=== PATIENT | female | born 1940 | race Caucasian/White ===

== ENCOUNTER 2016-12-09 14:58 | Inpatient (IN) | payer MEDICARE, OTHER, SELFPAY ==
[2016-12-09] VITALS (9 sets, daily range): BP systolic 93–128; BP diastolic 61–79; PULSE 82–118; RESP 16–23; TEMP 36.9–37.1; O2SAT 95–100; BMI 21.8; BMI 22.2
--- NOTE | 2016-12-09 15:18 | EKG12_ITS ---
Test Reason : NEAR SYNCOPE Blood Pressure : / mmHG Vent. Rate : 095 BPM Atrial Rate : 095 BPM P-R Int : 220 ms QRS Dur : 078 ms QT Int : 362 ms P-R-T Axes : 050 -41 051 degrees QTc Int : 454 ms Sinus rhythm with 1st degree A-V block with Premature atrial complexes Left axis deviation / LAHB Anterolateral infarct , age undetermined Abnormal ECG Confirmed by TACO ANTOINE ([id number]), assignment editor REY GOFF ([id number]) on 12/11/2016 3:18:05 PM Referred By: JULIANA/CARMEN Confirmed By:TACO ANTOINE
[2016-12-09 16:21] LABS: Anion Gap 11 (5-15); BUN 31 mg/dL (7-18); BUN/Creat Ratio 17.5 RATIO (10-20); Calcium,Total 8.2 mg/dL (8.5-10.1); Chloride 110 mmol/L (98-107); Creatinine, Serum 1.77 mg/dL (0.55-1.02); EST Glomerular Filtration Rate 30 mL/min (>60); Est Glom Filt Rate - Afr Amer 36 mL/min (>60); Estimated Creatinine Clearance 22.72 ml/min; Glucose 96 mg/dL (70-110); Potassium 4.1 mmol/L (3.5-5.1); Sodium Level 140 mmol/L (136-145)
[2016-12-09 16:54] LABS: Absolute Lymphocyte Count 1.64 X10^3/ul (0.83-4.51); Absolute Neutrophil Count 8.4 X10^3/uL (2.0-7.7); Basophil# 0.02 X10^3/uL; Basophil% 0.2 % (0-1); Eosinophil# 0.01 X10^3/uL; Eosinophils% 0.1 % (0-5); Hemoglobin 9.1 g/dl (12.0-15.0); Lymphocyte # 1.64 X10^3/ul (4.0); Lymphocyte % 15.6 % (19-41); Mean Corp Hgb Conc 31.4 g/gl (32-36); Mean Corpuscular Hgb 31.8 pg (27.0-32.0); Mean Corpuscular Volume 101.4 fL (81-99); Mean Platelet Vol. 11.8 fl (6.2-12.0); Monocyte# 0.43 X10^3/uL; Monocyte% 4.1 % (0-10); Neutrophil # 8.38 X10^3/uL (2.7-7.7); Neutrophil % 79.8 % (47-70); Platelet Count 261 K/mm3 (150-450); RBC Distribution Width CV 13.2 % (11.6-14.6); RBC Distribution Width SD 47.7 fl (35.1-43.9); Red Blood Count 2.86 M/mm3 (4.2-5.4); White Blood Count 10.5 K/mm3 (4.4-11.0)
[2016-12-09 17:03] LABS: POSITIVE COUNT NO; POSITIVE DIFFERENTIAL NO; POSITIVE MORPHOLOGY NO
--- NOTE | 2016-12-09 18:13 | CT_ITS ---
CT Abdomen And Pelvis W/O Contrast INDICATION: ABD PAIN, HX OF ULCER AND CKD. HX OF GASTRIC BYPASS, GB, JUSTINA/BSO COMPARISON: None TECHNIQUE: Noncontrast axial CT examination of the abdomen and pelvis with coronal and sagittal reformatted images. Radiation dose optimization technique applied. FINDINGS: Visualized lung bases demonstrate subsegmental atelectasis at the left lung base and some air trapping, otherwise clear. The heart size is normal. Trace pericardial fluid is present. Liver and spleen are normal in size. Gallbladder is surgically absent. Surgical sutures are seen at the stomach and there is significant wall thickening and fat stranding at the distal stomach adjacent to the sutures, and extending along the proximal duodenum. Few adjacent lymph nodes are seen. Pancreas is small in size. The kidneys are without evidence of nephrolithiasis or hydronephrosis. A 2 cm right renal mass or complex cyst is present . The bowel loops are nondistended. The appendix is not visualized. There is no evidence of free air or free fluid. Osseous structures demonstrate multilevel degenerative changes. CT/Abdomen/Pelvis without Cont IMPRESSION: Wall thickening and significant fat stranding at the level of the distal stomach, and proximal duodenum, level of the sutures, suggestive of inflammation or infection. Neoplasm appears less likely. Further evaluation with EGD is recommended. Status post cholecystectomy. 2 cm complex cyst about circumscribed mass at the right kidney, recommend further evaluation/confirmation with ultrasound. at 1902 Reported and signed by: Yoli Prasad MD Electronically Signed: Yoli Prasad MD at 18:00 EDT Tel , Service support ,
[2016-12-09 18:50] LABS: Red Blood Cells-Urine 0 SEEN /hpf (0-5)
[2016-12-09 19:05] LABS: Color, Urine Yellow (Yellow); Glucose, Dipstick Normal (Normal); Ketone-Dipstick 50 mg/dl (Negative); Leukocyte Esterase-Dipstick 100 /ul (Negative); Nitrite-Dipstick Negative (Negative); Occult Blood-Urine Negative /ul (Negative); Protein-Dipstick 30 mg/dl (Negative); Specific Gravity, Urine 1.015 (1.002-1.030); Urine Bilirubin Dipstick Negative (Negative); Urine Clarity Sl. Cloudy (Clear); Urine Urobilinogen Normal (Normal)
--- NOTE | 2016-12-09 19:24 | ED.RN ---
Updated Dr. Jasmine of patient's complaints of nausea.
[2016-12-09 19:36] LABS: AST(SGOT) 19 U/L (15-37); Alanine Aminotransfer ALT/SGPT 18 U/L (12-78); Albumin, Serum 2.9 g/dL (3.4-5.0); Alkaline Phosphatase 141 U/L (45-117); Bilirubin, Direct 0.11 mg/dL (0.00-0.30); Globulin 3.4 g/dL (2.3-3.5); Protein, Total 6.3 g/dL (6.4-8.2)
[2016-12-09 19:52] LABS: Lipase 175 U/L (73-393)
[2016-12-09] MEDS: Ondansetron 4 MG/2 ML Vial IV (19:58)
[2016-12-09 20:02] LABS: White Blood Cells 5-10 SEEN /hpf (0-5)
[2016-12-09 20:03] LABS: Bacteria 1+ /hpf (None Seen); Mucous, Urine 1+ /hpf (<or=2+); Squamous Epithelial Cells - UA 0-5 SEEN /hpf (5-10)
--- NOTE | 2016-12-09 20:05 | CT_ITS ---
CT Abdomen And Pelvis W/O Contrast INDICATION: F/U WITH ORAL CONTRAST FOR WALL THICKENING AND FAT STRANDING AT LEVEL OF DISTAL STOMACH AND PROXIMAL DUODENUMHX:CKD,HYPOTHYROIDSURGERY:GASTRIC BYPASS,APPENDECTOMY,CHOLECYSTECTOMY,COLECTOMY,HYSTERECTOMY COMPARISON: Earlier the same day TECHNIQUE: Axial CT imaging of the abdomen and pelvis with oral contrast. Coronal and sagittal reformatted images. Radiation dose optimization technique applied. FINDINGS: A calcific density is partially included in the scan at the left lung base along the major fissure. This finding was appreciated on prior chest x-ray from November 21, 2016. Visualized lung bases otherwise clear. Oral contrast material is seen in the stomach. , And extends into the proximal small bowel. There is diffuse bowel wall thickening at the distal stomach and at the connection to the small bowel at the level of surgery. Adjacent fat stranding is noted and small mesenteric lymph nodes. There is no evidence of free air or contrast extravasation. Liver and spleen are normal in size. Kidneys are without evidence of hydronephrosis. 2 cm complex cyst or a solid lesion again noted associated with the right kidney. CT/Abdomen/Pel W ORAL Cont Only IMPRESSION: Redemonstration of diffuse wall thickening at the distal stomach and proximal small bowel, compatible with inflammation or infection. No evidence off perforation/free air or drainable abscess at this time. Further evaluation with EGD is recommended. 2 cm complex cyst or solid mass associated with the right kidney, as described. at 2906 Reported and signed by: Yoli Prasad MD Electronically Signed: Yoli Prasad MD at 20:54 EDT Tel , Service support ,
--- NOTE | 2016-12-09 22:26 | ED.RN ---
Updated Dr. Jasmine of patient's complaints of GI cramping and low bp. New orders received.
--- NOTE | 2016-12-09 22:40 | HP.PCM_ITS ---
Problem List (1) Abdominal pain Status: Acute Qualifiers: Abdominal location: left upper quadrant Qualified Code(s): R10.12 - Left upper quadrant pain (2) Nausea and vomiting Status: Acute Qualifiers: Vomiting type: unspecified (3) CKD (chronic kidney disease) Status: Chronic (4) Hypothyroid Status: Chronic Qualifiers: Hypothyroidism type: unspecified Qualified Code(s): E03.9 - Hypothyroidism , unspecified (5) Vitamin D deficiency Status: Chronic History of Present Illness Date of Admission: 12/09/16 Chief Complaint: abdominal pain with nausea and vomiting The patient is a 76 year old female patient with a significant past medical history of hypothyroidism, and previous abdominal pain status post surgical repair of what she says was perforation that occurred during and endoscopy in 2002. She presents to the ER just over a week from discharge for similar complaint. She has abdominal pain with nausea and vomiting beginning this past Friday. She has not been tolerating PO since that time. Today in the office of her PCP she became lightheaded and asked for help, she was then transferred to the ER for further evaluation. She denies chest pain or shortness of breath. Her history reveals hypothyroidism which she states she has been making an effort to take her medication up until Friday when she was no longer able to tolerate PO. She will be admitted made NPO and plan for EGD on Friday by Dr. aMys. Past Medical History Past Medical History (Chronic Problems): Chronic Problems CKD (chronic kidney disease) (Chronic) Hypothyroid (Chronic) Vitamin D deficiency (Chronic) Allergies Penicillins [PCN] Allergy (Verified 11/21/16 15:09) Angioedema PENTANYLBUPIVACAINE Allergy (Uncoded 11/21/16 15:09) Other Home Medications: Ambulatory Orders Medication Instructions Recorded Omeprazole 20 mg PO BID 11/21/16 Sucralfate [Carafate] 1 gm PO TID 11/21/16 Ferrous Sulfate [Iron] 325 mg PO BID #60 tablet 11/25/16 Levothyroxine [Synthroid] 50 mcg PO DAILY@0600 #30 tablet 11/25/16 Sodium Bicarbonate 650 mg PO BID #60 tablet 11/25/16 Surgical History: appendectomy, cholecystectomy, hysterectomy, - - gastric bypass, colectemy, vocal cord polyp, egd Smoking Status: Never smoker - *Family History Maternal History Items: - - pneumonia Paternal History Items: - - in a boating accident Sibling History Items: Heart Disease, Renal Disease - On dialysis following open heart surgery Review of Systems Constitutional: Reports: Weakness. Denies: Chills, Fever, Weight Change HEENT: Denies: Head Aches, Sinus Congestion, Sinus Drainage Cardiovascular: Denies: Chest Pain, Palpitations Respiratory: Denies: Cough, Shortness of breath at rest, Sputum production Gastrointestinal: Reports: Abdominal Pain, Nausea, Vomiting Genitourinary: Denies: Dysuria Musculoskeletal: Denies: Joint Pain, Joint Tenderness Skin: Denies: Rash, Wounds Neurological: Denies: Numbness, Tingling, Focal weakness Psychiatric: Denies: Anxiety, Depression, Homicidal Ideations, Suicidal Ideations Hematologic/ Lymphatic: Denies: Easy Bruising, Easy Bleeding VTE Information - Inpt Only VTE Present on Admission: No VTE Mechan Device Prophylaxis: SCD's VTE Pharm Prophylaxis ordered?: No Reason prophylaxis not ordered:: Medical Contraindication Patient Problems: Active and Suspected Problems Abdominal pain (Acute) Nausea and vomiting (Acute) - Physical Exam General: Alert, Oriented x3, Cooperative HEENT: Atraumatic, Normocephalic Neck: Supple Lungs: Clear to auscultation, Normal air movement, No rhonchi, No wheeze, No rales Cardiovascular: Regular rate, Regular Rhythm, Normal S1, Normal S2, No murmurs Abdomen: Bowel Sounds Present, Soft, Tender - LUQ Extremities: No edema, Capillary Refill Less than 3 Seconds Skin: No rashes Musculoskeletal: No Tenderness to Palpation of Joints or Extremities Neurological: Neuro grossly intact Psych/Mental Status: Normal Affect, Appropriate Vital Signs Temp Pulse Resp BP Pulse Ox 98.5 F 90 23 108/79 100 12/09/16 15:15 12/09/16 20:05 12/09/16 20:05 12/09/16 20:05 12/09/16 20:05 Oxygen Delivery Method Room Air Weight: 125 lb Body Mass Index (BMI) 21.8 Laboratory Tests Past 24 Hrs 12/09/16 12/09/16 12/09/16 15:39 15:39 15:39 WBC 10.5 RBC 2.86 L Hgb 9.1 L Hct 29.0 L MCV 101.4 H MCH 31.8 MCHC 31.4 L RDW 13.2 RDW Differential 47.7 H Plt Count 261 MPV 11.8 Immature Gran % (Auto) 0.200 Neut % (Auto) 79.8 H Lymph % (Auto) 15.6 L [place] % (Auto) 4.1 Eos % (Auto) 0.1 Baso % (Auto) 0.2 Absolute Neuts (auto) 8.4 H Absolute Lymphs (auto) 1.64 Total Counted Not Reportable Sodium 140 Potassium 4.1 Chloride 110 H Carbon Dioxide 19.0 L Anion Gap 11 BUN 31 H Creatinine 1.77 H Estim Creat Clear Calc 22.72 Est GFR (MDRD) Af Amer 36 L Est GFR (MDRD) Non-Af 30 L BUN/Creatinine Ratio 17.5 Glucose 96 Calcium 8.2 L Total Bilirubin 0.40 Direct Bilirubin 0.11 AST 19 ALT 18 Alkaline Phosphatase 141 H Troponin I Total Protein 6.3 L Albumin 2.9 L Globulin 3.4 Lipase TSH Urine Color Urine Clarity Urine pH Ur Specific [place] Urine Protein Urine Glucose (UA) Urine Ketones Urine Occult Blood Urine Nitrite Urine Bilirubin Urine Urobilinogen Ur Leukocyte Esterase Urine RBC Urine WBC Ur Squamous Epith Cells Urine Bacteria Urine Mucus 12/09/16 12/09/16 15:39 18:35 WBC RBC Hgb Hct MCV MCH MCHC RDW RDW Differential Plt Count MPV Immature Gran % (Auto) Neut % (Auto) Lymph % (Auto) [place] % (Auto) Eos % (Auto) Baso % (Auto) Absolute Neuts (auto) Absolute Lymphs (auto) Total Counted Sodium Potassium Chloride Carbon Dioxide Anion Gap BUN Creatinine Estim Creat Clear Calc Est GFR (MDRD) Af Amer Est GFR (MDRD) Non-Af BUN/Creatinine Ratio Glucose Calcium Total Bilirubin Direct Bilirubin AST ALT Alkaline Phosphatase Troponin I < 0.02 Total Protein Albumin Globulin Lipase 175 TSH 55.80 H Urine Color Yellow Urine Clarity Sl. Cloudy Urine pH 6.0 Ur Specific [place] 1.015 Urine Protein 30 H Urine Glucose (UA) Normal Urine Ketones 50 H Urine Occult Blood Negative Urine Nitrite Negative Urine Bilirubin Negative Urine Urobilinogen Normal Ur Leukocyte Esterase 100 H Urine RBC 0 SEEN Urine WBC 5-10 SEEN Ur Squamous Epith Cells 0-5 SEEN Urine Bacteria 1+ Urine Mucus 1+ Assessment/Plan Active and Suspected Problems Abdominal pain (Acute) Nausea and vomiting (Acute) Chronic conditions - hypothyroidism - vit D deficiency Plan - admit to medical surgical floor - Make patient NPO - maintain on d51/2 NS with 20meq Kcl at 75 cc /hr - cbc, cmp in am - morphine 2-4 mg iv q 2 hrs prn - zofran 8mg q 8hrs prn nausea - scds for DVT prophylaxis - consult Dr Jaskaran Mays for surgical management - may have thyroid medication with small sip of h20
--- NOTE | 2016-12-09 22:45 | ED.VISSUMM ---
- ER Visit Summary Date of Service: 12/09/16 Chief Complaint: [Nausea and vomiting, near syncope] History of Present Illness: The patient is a 76 F [who presents the emergency department with nausea and vomiting. She has not been able to eat anything for the last 3 days. Everything she eats she vomits up. She says she has some mild pain in her left upper quadrant she feels like is her stomach. She has a history of ulcer disease. She also states she has a history of gastric bypass. She said last time that was performed was in [address] Johnson. She denies any fevers or chills but has felt weak and today she had a near syncopal episode in her doctor's office. She states her bowel movements have been decreased but she is passing gas. Urination she says is normal. She does have a history of hypothyroidism. She has had some swelling of lower extremities.] Physical Examination: [] Vitals reviewed WN WD NAD PERRL EOMI MMM NECK supple and nontender, no masses RRR no murmur rub or gallop, 3+ lower extremity edema, symmetric radial pulses CTAB no respiratory distress ABDOMEN is soft she has mild left upper quadrant tenderness to palpation, normal bowel sounds, no distension, no rebound or guarding SKIN is warm and dry no rashes Alert and Oriented x3, CN II-XII in tact, no motor or sensory deficits, gait normal No lymphadenopathy Test Results: [] Emergency Department Course and Treatment: [Orthostatics were obtained and were positive. Patient was given 500 cc bolus. TSH was sent and was 55 however previous TSH was in the 200s. Patient has chronic anemia and her hemoglobin is actually improved at 9.1. She has chronic kidney disease and creatinine is actually improved at 1.77 bicarb is 19 which is better than previous for her. Other blood work does not show significant abnormality. CT scan was ordered because of the patient's history of gastric bypass in report. It showed inflammation and scarring of the stomach and proximal duodenum along the suture line. I spoke with surgery who recommended p.o. contrasted CAT scan this was performed. There is again stranding but no evidence of obstruction or other abnormality. She then told hospitalist that she had a perforation of her stomach during endoscopy. She was placed on a Protonix drip she was given morphine and Zofran she was given additional bolus of fluid and will be admitted to the hospital] Treatment Plan: [] Disposition: [] Admit Impression: [Dehydration, gastritis duodenitis, hypothyroid] ED Disposition - Plan for ED Patient: Chief Complaint: Dizziness Referrals: Tu Pearce MD [Primary Care Provider] -
--- NOTE | 2016-12-09 23:25 | ED.RN ---
RN spoke with JOCE Chaparro and informed him that when patient arrives to the floor, please send urine culture sticker to the lab. Specimen was collected earlier in the ED.
[2016-12-10] VITALS (29 sets, daily range): BP systolic 84–117; BP diastolic 52–92; PULSE 15–132; RESP 13–23; TEMP 36.4–39.2; O2SAT 93–100
[2016-12-10] MEDS: Levothyroxine 50 MCG Tablet PO (05:39)
[2016-12-10 08:32] LABS: Absolute Lymphocyte Count 1.98 X10^3/ul (0.83-4.51); Basophil# 0.02 X10^3/uL; Basophil% 0.4 % (0-1); Eosinophil# 0.07 X10^3/uL; Eosinophils% 1.2 % (0-5); Hematocrit 17.1 % (37-47); Lymphocyte # 1.98 X10^3/ul (4.0); Lymphocyte % 35.1 % (19-41); Mean Corp Hgb Conc 31.6 g/gl (32-36); Mean Corpuscular Hgb 31.8 pg (27.0-32.0); Mean Corpuscular Volume 100.6 fL (81-99); Mean Platelet Vol. 10.7 fl (6.2-12.0); Monocyte# 0.55 X10^3/uL; Monocyte% 9.8 % (0-10); Neutrophil % 53.1 % (47-70); Platelet Count 167 K/mm3 (150-450); RBC Distribution Width SD 45.4 fl (35.1-43.9); White Blood Count 5.6 K/mm3 (4.4-11.0)
[2016-12-10 08:35] LABS: Differential Indicated SCAN CRITERIA MET; POSITIVE COUNT YES; POSITIVE DIFFERENTIAL NO; POSITIVE MORPHOLOGY NO
[2016-12-10 08:36] LABS: Hemoglobin 5.4 g/dl (12.0-15.0)
[2016-12-10 08:48] LABS: ALB/GLOB Ratio 0.9 RATIO (0.9-2.4); AST(SGOT) 10 U/L (15-37); Alanine Aminotransfer ALT/SGPT 12 U/L (12-78); Alkaline Phosphatase 87 U/L (45-117); Anion Gap 11 (5-15); BUN 37 mg/dL (7-18); BUN/Creat Ratio 22.7 RATIO (10-20); Calcium,Total 7.2 mg/dL (8.5-10.1); Chloride 115 mmol/L (98-107); Creatinine, Serum 1.63 mg/dL (0.55-1.02); EST Glomerular Filtration Rate 33 mL/min (>60); Est Glom Filt Rate - Afr Amer 40 mL/min (>60); Estimated Creatinine Clearance 24.67 ml/min; Globulin 2.3 g/dL (2.3-3.5); Glucose 90 mg/dL (70-110); Potassium 4.5 mmol/L (3.5-5.1); Protein, Total 4.3 g/dL (6.4-8.2); Sodium Level 143 mmol/L (136-145)
[2016-12-10] MEDS: 0.9% Normal Saline 1,000 ML 999 ML IV (08:58)
--- NOTE | 2016-12-10 08:59 | PN_ITS ---
Patient Problems: Active and Suspected Problems Abdominal pain (Acute) Anemia associated with acute blood loss (Acute) Nausea and vomiting (Acute) Subjective: CC: Abdominal pain This is a 76 year old female patient with history of surgical repair of abdominal perforation that occurred during and endoscopy in 2002. She presents to the ED just over a week from discharge for similar complaint. She reports abdominal pain with nausea, vomiting. CT scan of the abdomen and pelvis done in the emergency room yesterday was treated for condition of the junction between the distal stomach and small bowel which may represent an infectious or an inflammatory process. With this morning reported hypotension with systolic blood pressure in the 80s , call from lab with hemoglobin of 5.6. For this patient immediately, she is alert and oriented to time place and person, has any abdominal pain, hematemesis , hematochezia or melena stools. Vitals/I&O's: Vital Signs Temp Pulse Resp BP Pulse Ox 98.0 F 80 18 84/52 98 12/10/16 07:59 12/10/16 07:59 12/10/16 07:59 12/10/16 07:59 12/10/16 07:59 Oxygen Delivery Method Room Air Weight: 56.9 kg Body Mass Index (BMI) 22.2 Intake and Output for Last 24 Hours 12/08/16 12/09/16 12/10/16 23:59 23:59 23:59 Intake Total 432 Output Total 500 Balance -68 General: Alert, Oriented x3, Cooperative Neck: Supple, Negative Carotid Bruits Lungs: Clear to auscultation Cardiovascular: Regular rate, Normal S1, Normal S2 Abdomen: Soft, - - Mild left upper quadrant tenderness Neurological: Cranial nerves II-XII grossly intact, Motor Exam 5/5 strength throughout Psych/Mental Status: Normal Affect Laboratory Results 12/10/16 06:30: WBC Cancelled, Corrected WBC Cancelled, RBC Cancelled, Hgb Cancelled, Hct Cancelled, MCV Cancelled, MCH Cancelled, MCHC Cancelled, RDW Cancelled, RDW Differential Cancelled, Plt Count Cancelled, MPV Cancelled, Immature Gran % (Auto) Cancelled, Neut % (Auto) Cancelled, Lymph % (Auto) Cancelled, [place] % (Auto) Cancelled, Eos % (Auto) Cancelled, Baso % (Auto) Cancelled, Immature Gran # (Auto) Cancelled, Absolute Neuts (auto) Cancelled, Absolute Lymphs (auto) Cancelled, Absolute Monos (auto) Cancelled, Total Counted Cancelled, Neutrophils % (Manual) Cancelled, Band Neutrophils % Cancelled, Lymphocytes % (Manual) Cancelled, Monocytes % (Manual) Cancelled, Eosinophils % (Manual) Cancelled, Basophils % (Manual) Cancelled, Metamyelocytes % Cancelled, Myelocytes % Cancelled, Promyelocytes % Cancelled, Blast Cells % Cancelled, Plasma Cell % (Manual) Cancelled, Other Cells % Cancelled, Lymphocytes # Cancelled, Nucleated RBCs/100 WBC Cancelled, Differential Comment Cancelled, Diff Path Review Cancelled, Hypersegmented Neuts Cancelled, Atypical Lymphocytes Cancelled, Reactive Lymphocytes Cancelled , Smudge Cells Cancelled, Eosinophilia # Cancelled, Basophilia # Cancelled, Toxic Granulation Cancelled, Dohle Bodies Cancelled, [place] Rods Cancelled, Platelet Estimate Cancelled, Plt Morphology Comment Cancelled, RBC Morphology Cancelled, Polychromasia Cancelled, Hypochromasia Cancelled, Poikilocytosis Cancelled, Basophilic Stippling Cancelled, Anisocytosis Cancelled, Microcytosis Cancelled, Macrocytosis Cancelled, Spherocytes Cancelled, Sickle Cells Cancelled , Target Cells Cancelled, Tear Drop Cells Cancelled, Ovalocytes Cancelled, Stomatocytes Cancelled, [place] Bodies Cancelled, [place] Cells Cancelled, Bite Cells Cancelled, Acanthocytes (Spur) Cancelled, Rouleaux Cancelled, Schistocytes Cancelled 12/10/16 06:30: Sodium Cancelled, Potassium Cancelled, Chloride Cancelled, Carbon Dioxide Cancelled, Anion Gap Cancelled, BUN Cancelled, Creatinine Cancelled, Estim Creat Clear Calc Cancelled, Est GFR (MDRD) Af Amer Cancelled, Est GFR (MDRD) Non-Af Cancelled, BUN/Creatinine Ratio Cancelled, Glucose Cancelled, Calcium Cancelled, Total Bilirubin Cancelled, AST Cancelled, ALT Cancelled, Alkaline Phosphatase Cancelled, Total Protein Cancelled, Albumin Cancelled, Globulin Cancelled, Albumin/Globulin Ratio Cancelled 12/10/16 08:21: WBC 5.6, RBC 1.70 L, Hgb Pending, Hct 17.1 L, MCV 100.6 H, MCH 31.8, MCHC 31.6 L, RDW 13.0, RDW Differential 45.4 H, Plt Count 167, MPV 10.7, Immature Gran % (Auto) 0.400, Neut % (Auto) 53.1, Lymph % (Auto) 35.1, [place] % ( Auto) 9.8, Eos % (Auto) 1.2, Baso % (Auto) 0.4, Absolute Neuts (auto) 3.0, Absolute Lymphs (auto) 1.98, Total Counted Pending 12/10/16 08:21: Sodium 143, Potassium 4.5, Chloride 115 H, Carbon Dioxide 17.0 L , Anion Gap 11, BUN 37 H, Creatinine 1.63 H, Estim Creat Clear Calc 24.67, Est GFR (MDRD) Af Amer 40 L, Est GFR (MDRD) Non-Af 33 L, BUN/Creatinine Ratio 22.7 H , Glucose 90, Calcium 7.2 L, Total Bilirubin 0.20, AST 10 L, ALT 12, Alkaline Phosphatase 87, Total Protein 4.3 L, Albumin 2.0 L, Globulin 2.3, Albumin/ Globulin Ratio 0.9 12/10/16 08:21: Free T4 Pending Current Medications Pantoprazole Sodium 80 mg/ (Sodium Chloride) 100 mls @ 10 mls/hr CONT INF Q10H [facility] Last Admin: 12/10/16 06:49 Dose: 10 mls/hr Sodium Chloride () 1,000 mls @ 999 mls/hr IV .Q1H1M ONE Stop: 12/10/16 09:45 Levothyroxine Sodium (Synthroid) 50 mcg PO DAILY@0600 [facility] Last Admin: 12/10/16 05:39 Dose: 50 mcg Morphine Sulfate (Morphine) 2 - 4 mg IV Q3H PRN PRN PRN Reason: Severe Pain (pain scale 6-10) Morphine Sulfate (Morphine) 2 - 4 mg IV Q3H PRN PRN PRN Reason: Severe Pain (pain scale 6-10) Nutritional Formula (Lactose Free) (Ensure Clear) 120 ml PO TIDCM [facility] Sodium Chloride () 5 - 30 ml IV UD PRN PRN Reason: SALINE FLUSH Assessment/Plan Active and Suspected Problems Abdominal pain (Acute) Anemia associated with acute blood loss (Acute) Nausea and vomiting (Acute) 1. Hypotension; she will be given IV fluids, if blood pressure is still low following a liter bolus , she will be transferred to higher level of acuity of care. 2. acute blood loss anemia; will repeat H&H frequently and transfuse as needed. 3. Abdominal pain; she has history of peptic ulcer disease , she is status post gastric bypass surgery, this does not appear to be an acute surgical abdomen based on my exam. However we will place an NG tube to make sure she is not having an UGI bleed. We will continue IV PPI. Surgery was consulted at the time of admission and again identified of clinical deterioration. 4. Chronic kidney disease; we will avoid potential nephrotoxic medications, dose medications based on her current GFR 5. diffuse wall thickening of stomach and small bowel; we will obtain a sed rate, started on IV Flagyl and Levaquin for possible infection, 6. Hypothyroidism; she is on Synthroid. 7. coagulopathy with an INR of 1.3, unclear etiology, her liver enzymes are normal and she is not on an anticoagulant from home.
[2016-12-10 09:09] LABS: T4 Free Direct 0.67 ng/dL (0.76-1.46)
[2016-12-10 09:12] LABS: Hematocrit 16.9 % (37-47)
[2016-12-10 09:13] LABS: Hypochromasia 3+; Macrocytosis 1+; Polychromasia 2+
[2016-12-10 09:14] LABS: Hemoglobin 5.2 g/dl (12.0-15.0)
[2016-12-10] MEDS: Tetracaine/Benzocaine/Butamben 1 APPLIC TOPICAL (10:35)
--- NOTE | 2016-12-10 10:45 | NURSING ---
Attempted to insert NG tube x2 without success. RN informed JOCE Hurt of same.
--- NOTE | 2016-12-10 11:50 | PCM.CONS.GEN ---
<Judith Hancock - Last Filed: 12/10/16 12:56> Reason for Consult Date of Consultation: 12/10/16 Reason for Consultation: abdominal pain, nausea and vomiting History of Present Illness: The patient is a 76 year old F I am seeing for surgical consultation in conjunction with Dr. Mays. The patient notes a 3-day history of nausea and vomiting with associated epigastric and left upper quadrant abdominal pain. Patient describes her symptoms as acute in onset Friday night. She notes a history of ulcers in the past and describes this pain as similar to when she had an ulcer. She took carafate when her symptoms started and stated this would temporarily improve the pain and nausea for about 2 hours. She notes she has not been able to keep anything down aside from a very small bit of broth. She denies blood in stools or changes in bowel habits. She denies fever or chills. Noted lightheadedness yesterday in addition to above complaints which prompted presentation to emergency department. In the emergency department, hemoglobin was noted to be 9.1, with history of chronic anemia. Creatinine 1.77 consistent with patient history of chronic kidney disease. Laboratory studies were otherwise unremarkable. CT of abdomen and pelvis with oral contrast showed bowel wall thickening of distal stomach and connection to small bowel at level of prior surgery. No evidence of free air or contrast extravasation. Patient was admitted and made NPO, placed on Protonix drip. Dr. Mays was consulted with tentative plan for EGD Friday as Dr. Mays would be in surgery at [place] all day today. The patient notes feeling relatively comfortable this morning but very fatigued. The patient's past history is significant for emergency abdominal surgery-states she had been seen at [facility] in 2002 to discuss weight loss, underwent upper endoscopy which was complicated by perforation. She underwent surgical repair and reports was hospitalized in the ICU for 8 days following surgery. Other surgical history significant for hysterectomy, cholecystectomy. She denies a history of cardiac or respiratory issues and denies any chest pain or shortness of breath currently. Past Medical History Past Medical History (Chronic Problems): Chronic Problems CKD (chronic kidney disease) (Chronic) Hypothyroid (Chronic) Vitamin D deficiency (Chronic) Allergies Penicillins [PCN] Allergy (Verified 11/21/16 15:09) Angioedema PENTANYLBUPIVACAINE Allergy (Uncoded 11/21/16 15:09) Other Home Medications: Ambulatory Orders Medication Instructions Recorded Sucralfate [Carafate] 1 gm PO TID 11/21/16 Ferrous Sulfate [Iron] 325 mg PO BID #60 tablet 11/25/16 Levothyroxine [Synthroid] 50 mcg PO DAILY@0600 #30 tablet 11/25/16 Sodium Bicarbonate 650 mg PO BID #60 tablet 11/25/16 Ascorbic Acid [Vitamin C] 500 mg PO BID 12/09/16 Cyanocobalamin (Vitamin B-12) 1,500 mcg PO DAILY 12/09/16 [Vitamin B-12] Surgical History: appendectomy, cholecystectomy, hysterectomy, - - gastric bypass, colectemy, vocal cord polyp, egd Smoking Status: Never smoker - *Family History Maternal History Items: - - pneumonia Paternal History Items: - - in a boating accident Sibling History Items: Heart Disease, Renal Disease - On dialysis following open heart surgery Review of Systems Constitutional: Denies: Chills, Fever Eyes: Denies: Vision Change HEENT: Denies: Visual Changes Cardiovascular: Denies: Chest Pain, Chest Tightness, Edema Respiratory: Denies: Cough, Shortness of Breath Gastrointestinal: Reports: Abdominal Pain, Nausea, Vomiting. Denies: Constipation, Diarrhea Skin: Denies: Skin Changes Patient Problems: Active and Suspected Problems Abdominal pain (Acute) Anemia associated with acute blood loss (Acute) Nausea and vomiting (Acute) - Physical Exam General: Alert, Oriented x3, Cooperative, No apparent distress HEENT: Atraumatic, Normocephalic Neck: Supple Lungs: Clear to auscultation, Normal air movement Cardiovascular: Regular rate, Regular Rhythm Abdomen: Bowel Sounds Present, Soft, - - mild TTP LUQ and epigastrium without rebound or guarding Extremities: No clubbing, No cyanosis Skin: No rashes, No breakdown Vital Signs Temp Pulse Resp BP Pulse Ox 97.9 F 86 20 93/65 100 12/10/16 11:03 12/10/16 11:03 12/10/16 11:03 12/10/16 11:03 12/10/16 11:03 Oxygen Flow Rate 2 Oxygen Delivery Method Nasal Cannula Weight: 125 lb 10.616 oz Body Mass Index (BMI) 22.2 Intake and Output for Last 24 Hours 12/08/16 12/09/16 12/10/16 23:59 23:59 23:59 Intake Total 432 Output Total 500 Balance -68 Laboratory Tests Past 24 Hrs 12/10/16 12/10/16 12/10/16 06:30 06:30 08:21 WBC Cancelled 5.6 Corrected WBC Cancelled RBC Cancelled 1.70 L Hgb Cancelled 5.4 L* Hct Cancelled 17.1 L MCV Cancelled 100.6 H MCH Cancelled 31.8 MCHC Cancelled 31.6 L RDW Cancelled 13.0 RDW Differential Cancelled 45.4 H Plt Count Cancelled 167 MPV Cancelled 10.7 Immature Gran % (Auto) Cancelled 0.400 Neut % (Auto) Cancelled 53.1 Lymph % (Auto) Cancelled 35.1 [place] % (Auto) Cancelled 9.8 Eos % (Auto) Cancelled 1.2 Baso % (Auto) Cancelled 0.4 Immature Gran # (Auto) Cancelled Absolute Neuts (auto) Cancelled 3.0 Absolute Lymphs (auto) Cancelled 1.98 Absolute Monos (auto) Cancelled Total Counted Cancelled Not Reportable Neutrophils % (Manual) Cancelled Band Neutrophils % Cancelled Lymphocytes % (Manual) Cancelled Monocytes % (Manual) Cancelled Eosinophils % (Manual) Cancelled Basophils % (Manual) Cancelled Metamyelocytes % Cancelled Myelocytes % Cancelled Promyelocytes % Cancelled Blast Cells % Cancelled Plasma Cell % (Manual) Cancelled Other Cells % Cancelled Lymphocytes # Cancelled Nucleated RBCs/100 WBC Cancelled Differential Comment Cancelled Diff Path Review Cancelled May foll Hypersegmented Neuts Cancelled Atypical Lymphocytes Cancelled Reactive Lymphocytes Cancelled Smudge Cells Cancelled Eosinophilia # Cancelled Basophilia # Cancelled Toxic Granulation Cancelled Dohle Bodies Cancelled [place] Rods Cancelled Platelet Estimate Cancelled Plt Morphology Comment Cancelled RBC Morphology Cancelled Polychromasia Cancelled 2+ Hypochromasia Cancelled 3+ Poikilocytosis Cancelled Basophilic Stippling Cancelled Anisocytosis Cancelled Microcytosis Cancelled Macrocytosis Cancelled 1+ Spherocytes Cancelled Sickle Cells Cancelled Target Cells Cancelled Tear Drop Cells Cancelled Ovalocytes Cancelled Stomatocytes Cancelled [place] Bodies Cancelled [place]se Cells Cancelled Bite Cells Cancelled Acanthocytes (Spur) Cancelled Rouleaux Cancelled Schistocytes Cancelled ESR Sodium Cancelled Potassium Cancelled Chloride Cancelled Carbon Dioxide Cancelled Anion Gap Cancelled BUN Cancelled Creatinine Cancelled Estim Creat Clear Calc Cancelled Est GFR (MDRD) Af Amer Cancelled Est GFR (MDRD) Non-Af Cancelled BUN/Creatinine Ratio Cancelled Glucose Cancelled Calcium Cancelled Total Bilirubin Cancelled AST Cancelled ALT Cancelled Alkaline Phosphatase Cancelled Total Protein Cancelled Albumin Cancelled Globulin Cancelled Albumin/Globulin Ratio Cancelled Free T4 Miscellaneous Test Blood Type Antibody Screen Crossmatch 12/10/16 12/10/16 12/10/16 08:21 08:21 08:50 WBC Corrected WBC RBC Hgb Hct MCV MCH MCHC RDW RDW Differential Plt Count MPV Immature Gran % (Auto) Neut % (Auto) Lymph % (Auto) [place] % (Auto) Eos % (Auto) Baso % (Auto) Immature Gran # (Auto) Absolute Neuts (auto) Absolute Lymphs (auto) Absolute Monos (auto) Total Counted Neutrophils % (Manual) Band Neutrophils % Lymphocytes % (Manual) Monocytes % (Manual) Eosinophils % (Manual) Basophils % (Manual) Metamyelocytes % Myelocytes % Promyelocytes % Blast Cells % Plasma Cell % (Manual) Other Cells % Lymphocytes # Nucleated RBCs/100 WBC Differential Comment Diff Path Review Hypersegmented Neuts Atypical Lymphocytes Reactive Lymphocytes Smudge Cells Eosinophilia # Basophilia # Toxic Granulation Dohle Bodies [place] Rods Platelet Estimate Plt Morphology Comment RBC Morphology Polychromasia Hypochromasia Poikilocytosis Basophilic Stippling Anisocytosis Microcytosis Macrocytosis Spherocytes Sickle Cells Target Cells Tear Drop Cells Ovalocytes Stomatocytes [place] Bodies [place] Cells Bite Cells Acanthocytes (Spur) Rouleaux Schistocytes ESR Sodium 143 Potassium 4.5 Chloride 115 H Carbon Dioxide 17.0 L Anion Gap 11 BUN 37 H Creatinine 1.63 H Estim Creat Clear Calc 24.67 Est GFR (MDRD) Af Amer 40 L Est GFR (MDRD) Non-Af 33 L BUN/Creatinine Ratio 22.7 H Glucose 90 Calcium 7.2 L Total Bilirubin 0.20 AST 10 L ALT 12 Alkaline Phosphatase 87 Total Protein 4.3 L Albumin 2.0 L Globulin 2.3 Albumin/Globulin Ratio 0.9 Free T4 0.67 L Miscellaneous Test Blood Type O POSITIVE Antibody Screen NEGATIVE Crossmatch See Detail 12/10/16 12/10/16 08:50 08:50 WBC Corrected WBC RBC Hgb 5.2 L* Hct 16.9 L MCV MCH MCHC RDW RDW Differential Plt Count MPV Immature Gran % (Auto) Neut % (Auto) Lymph % (Auto) [place] % (Auto) Eos % (Auto) Baso % (Auto) Immature Gran # (Auto) Absolute Neuts (auto) Absolute Lymphs (auto) Absolute Monos (auto) Total Counted Neutrophils % (Manual) Band Neutrophils % Lymphocytes % (Manual) Monocytes % (Manual) Eosinophils % (Manual) Basophils % (Manual) Metamyelocytes % Myelocytes % Promyelocytes % Blast Cells % Plasma Cell % (Manual) Other Cells % Lymphocytes # Nucleated RBCs/100 WBC Differential Comment Diff Path Review Hypersegmented Neuts Atypical Lymphocytes Reactive Lymphocytes Smudge Cells Eosinophilia # Basophilia # Toxic Granulation Dohle Bodies [place] Rods Platelet Estimate Plt Morphology Comment RBC Morphology Polychromasia Hypochromasia Poikilocytosis Basophilic Stippling Anisocytosis Microcytosis Macrocytosis Spherocytes Sickle Cells Target Cells Tear Drop Cells Ovalocytes Stomatocytes [place] Bodies [place] Cells Bite Cells Acanthocytes (Spur) Rouleaux Schistocytes ESR Cancelled Sodium Potassium Chloride Carbon Dioxide Anion Gap BUN Creatinine Estim Creat Clear Calc Est GFR (MDRD) Af Amer Est GFR (MDRD) Non-Af BUN/Creatinine Ratio Glucose Calcium Total Bilirubin AST ALT Alkaline Phosphatase Total Protein Albumin Globulin Albumin/Globulin Ratio Free T4 Miscellaneous Test Pending Blood Type Antibody Screen Crossmatch Assessment/Plan Active and Suspected Problems Abdominal pain (Acute) Anemia associated with acute blood loss (Acute) Nausea and vomiting (Acute) I have reviewed my findings with Dr. Mays, who also participated in development of the following plan. Abdominal pain, nausea and vomiting History of peptic ulcer disease Patient seen early this morning while on med/surg floor for consultation. Initial plan was for Dr. Mays to perform EGD on Friday as discussed with admitting physician, as Dr. Mays is operating in [place] all day today and had notified hospital of this. Since time of patient visit earlier this morning however, patient became hypotensive and labs showed her hemoglobin dropped to 5.2, and she was transferred to the Intensive Care Unit. General surgery was not notified of change in patient condition. I have discussed with Dr. Mays who is still in surgery at [place]-she is recommending transfer to another facility to expedite care, or consultation to another surgeon here if available for urgent EGD. Discussed with Dr. Garcia <[email or web address] - Last Filed: 12/10/16 17:25> Reason for Consult History of Present Illness: The patient is a 76 year old F [] Past Medical History Allergies Penicillins [PCN] Allergy (Verified 11/21/16 15:09) Angioedema PENTANYLBUPIVACAINE Allergy (Uncoded 11/21/16 15:09) Other - *Family History Sibling History Items: Heart Disease - --, Renal Disease - --On dialysis following open heart surgery - Physical Exam Vital Signs Temp Pulse Resp BP Pulse Ox 97.9 F 68 16 98/60 99 12/10/16 15:42 12/10/16 15:42 12/10/16 15:42 12/10/16 15:42 12/10/16 15:42 Oxygen Flow Rate 1 Oxygen Delivery Method Nasal Cannula Weight: 57 kg Body Mass Index (BMI) 22.2 Intake and Output for Last 24 Hours 12/08/16 12/09/16 12/10/16 23:59 23:59 23:59 Intake Total 832 Output Total 500 Balance 332 Laboratory Tests Past 24 Hrs 12/10/16 12/10/16 12/10/16 06:30 06:30 08:21 WBC Cancelled 5.6 Corrected WBC Cancelled RBC Cancelled 1.70 L Hgb Cancelled 5.4 L* Hct Cancelled 17.1 L MCV Cancelled 100.6 H MCH Cancelled 31.8 MCHC Cancelled 31.6 L RDW Cancelled 13.0 RDW Differential Cancelled 45.4 H Plt Count Cancelled 167 MPV Cancelled 10.7 Immature Gran % (Auto) Cancelled 0.400 Neut % (Auto) Cancelled 53.1 Lymph % (Auto) Cancelled 35.1 [place] % (Auto) Cancelled 9.8 Eos % (Auto) Cancelled 1.2 Baso % (Auto) Cancelled 0.4 Immature Gran # (Auto) Cancelled Absolute Neuts (auto) Cancelled 3.0 Absolute Lymphs (auto) Cancelled 1.98 Absolute Monos (auto) Cancelled Total Counted Cancelled Not Reportable Neutrophils % (Manual) Cancelled Band Neutrophils % Cancelled Lymphocytes % (Manual) Cancelled Monocytes % (Manual) Cancelled Eosinophils % (Manual) Cancelled Basophils % (Manual) Cancelled Metamyelocytes % Cancelled Myelocytes % Cancelled Promyelocytes % Cancelled Blast Cells % Cancelled Plasma Cell % (Manual) Cancelled Other Cells % Cancelled Lymphocytes # Cancelled Nucleated RBCs/100 WBC Cancelled Differential Comment Cancelled Diff Path Review Cancelled May foll Hypersegmented Neuts Cancelled Atypical Lymphocytes Cancelled Reactive Lymphocytes Cancelled Smudge Cells Cancelled Eosinophilia # Cancelled Basophilia # Cancelled Toxic Granulation Cancelled Dohle Bodies Cancelled [place] Rods Cancelled Platelet Estimate Cancelled Plt Morphology Comment Cancelled RBC Morphology Cancelled Polychromasia Cancelled 2+ Hypochromasia Cancelled 3+ Poikilocytosis Cancelled Basophilic Stippling Cancelled Anisocytosis Cancelled Microcytosis Cancelled Macrocytosis Cancelled 1+ Spherocytes Cancelled Sickle Cells Cancelled Target Cells Cancelled Tear Drop Cells Cancelled Ovalocytes Cancelled Stomatocytes Cancelled [place] Bodies Cancelled [place] Cells Cancelled Bite Cells Cancelled Acanthocytes (Spur) Cancelled Rouleaux Cancelled Schistocytes Cancelled ESR PT INR APTT Sodium Cancelled Potassium Cancelled Chloride Cancelled Carbon Dioxide Cancelled Anion Gap Cancelled BUN Cancelled Creatinine Cancelled Estim Creat Clear Calc Cancelled Est GFR (MDRD) Af Amer Cancelled Est GFR (MDRD) Non-Af Cancelled BUN/Creatinine Ratio Cancelled Glucose Cancelled Calcium Cancelled Total Bilirubin Cancelled AST Cancelled ALT Cancelled Alkaline Phosphatase Cancelled Total Protein Cancelled Albumin Cancelled Globulin Cancelled Albumin/Globulin Ratio Cancelled Free T4 Miscellaneous Test Blood Type Antibody Screen Crossmatch 12/10/16 12/10/16 12/10/16 08:21 08:21 08:50 WBC Corrected WBC RBC Hgb Hct MCV MCH MCHC RDW RDW Differential Plt Count MPV Immature Gran % (Auto) Neut % (Auto) Lymph % (Auto) [place] % (Auto) Eos % (Auto) Baso % (Auto) Immature Gran # (Auto) Absolute Neuts (auto) Absolute Lymphs (auto) Absolute Monos (auto) Total Counted Neutrophils % (Manual) Band Neutrophils % Lymphocytes % (Manual) Monocytes % (Manual) Eosinophils % (Manual) Basophils % (Manual) Metamyelocytes % Myelocytes % Promyelocytes % Blast Cells % Plasma Cell % (Manual) Other Cells % Lymphocytes # Nucleated RBCs/100 WBC Differential Comment Diff Path Review Hypersegmented Neuts Atypical Lymphocytes Reactive Lymphocytes Smudge Cells Eosinophilia # Basophilia # Toxic Granulation Dohle Bodies [place] Rods Platelet Estimate Plt Morphology Comment RBC Morphology Polychromasia Hypochromasia Poikilocytosis Basophilic Stippling Anisocytosis Microcytosis Macrocytosis Spherocytes Sickle Cells Target Cells Tear Drop Cells Ovalocytes Stomatocytes [place] Bodies [place] Cells Bite Cells Acanthocytes (Spur) Rouleaux Schistocytes ESR PT INR APTT Sodium 143 Potassium 4.5 Chloride 115 H Carbon Dioxide 17.0 L Anion Gap 11 BUN 37 H Creatinine 1.63 H Estim Creat Clear Calc 24.67 Est GFR (MDRD) Af Amer 40 L Est GFR (MDRD) Non-Af 33 L BUN/Creatinine Ratio 22.7 H Glucose 90 Calcium 7.2 L Total Bilirubin 0.20 AST 10 L ALT 12 Alkaline Phosphatase 87 Total Protein 4.3 L Albumin 2.0 L Globulin 2.3 Albumin/Globulin Ratio 0.9 Free T4 0.67 L Miscellaneous Test Blood Type O POSITIVE Antibody Screen NEGATIVE Crossmatch See Detail 12/10/16 12/10/16 12/10/16 08:50 08:50 12:00 WBC Corrected WBC RBC Hgb 5.2 L* Hct 16.9 L MCV MCH MCHC RDW RDW Differential Plt Count MPV Immature Gran % (Auto) Neut % (Auto) Lymph % (Auto) [place] % (Auto) Eos % (Auto) Baso % (Auto) Immature Gran # (Auto) Absolute Neuts (auto) Absolute Lymphs (auto) Absolute Monos (auto) Total Counted Neutrophils % (Manual) Band Neutrophils % Lymphocytes % (Manual) Monocytes % (Manual) Eosinophils % (Manual) Basophils % (Manual) Metamyelocytes % Myelocytes % Promyelocytes % Blast Cells % Plasma Cell % (Manual) Other Cells % Lymphocytes # Nucleated RBCs/100 WBC Differential Comment Diff Path Review Hypersegmented Neuts Atypical Lymphocytes Reactive Lymphocytes Smudge Cells Eosinophilia # Basophilia # Toxic Granulation Dohle Bodies [place] Rods Platelet Estimate Plt Morphology Comment RBC Morphology Polychromasia Hypochromasia Poikilocytosis Basophilic Stippling Anisocytosis Microcytosis Macrocytosis Spherocytes Sickle Cells Target Cells Tear Drop Cells Ovalocytes Stomatocytes [place] Bodies [place] Cells Bite Cells Acanthocytes (Spur) Rouleaux Schistocytes ESR 1 PT 15.5 H INR 1.3 APTT 50.1 H Sodium Potassium Chloride Carbon Dioxide Anion Gap BUN Creatinine Estim Creat Clear Calc Est GFR (MDRD) Af Amer Est GFR (MDRD) Non-Af BUN/Creatinine Ratio Glucose Calcium Total Bilirubin AST ALT Alkaline Phosphatase Total Protein Albumin Globulin Albumin/Globulin Ratio Free T4 Miscellaneous Test Cancelled Blood Type Antibody Screen Crossmatch Assessment/Plan I agree with above. Patient developed hypotension and is requiring blood transfusions for drop in hemoglobin. I will do EGD later this afternoon. Patient aware of risks/benefits of procedure. She agrees to proceed. Consent form signed.
--- NOTE | 2016-12-10 12:00 | NURSING ---
Pt refusing NGT, Dr Jose adams.
[2016-12-10 12:26] LABS: International Normalized Ratio 1.3; Prothrombin Time (Protime)PT. 15.5 SECONDS (11.7-14.9)
[2016-12-10 12:27] LABS: Partial Thromboplast Time 50.1 Seconds (24.1-36.2)
[2016-12-10 13:03] LABS: Erythrocyte Sedimentation Rate 1 mm/hr (0-30)
--- NOTE | 2016-12-10 13:48 | PCM.CON.CC ---
Problem List (1) Anemia associated with acute blood loss Status: Acute (2) Abdominal pain Status: Acute Qualifiers: Abdominal location: left upper quadrant Qualified Code(s): R10.12 - Left upper quadrant pain (3) Ulcer Status: Acute (4) CKD (chronic kidney disease) Status: Chronic Qualifiers: Chronic kidney disease stage: stage 3 (moderate) Qualified Code(s): N18.3 - Chronic kidney disease, stage 3 (moderate) (5) Hypothyroid Status: Chronic Qualifiers: Hypothyroidism type: unspecified Qualified Code(s): E03.9 - Hypothyroidism, unspecified (6) Vitamin D deficiency Status: Chronic Reason for Consult Date of Consultation: 12/10/16 Reason for Consultation: Acute blood loss anemia History of Present Illness: The patient is a 76 year old F, with past medical history listed below, who presented to [facility] on 12/09/2016 secondary to abdominal pain. Patient reports that she had a similar type episode in 2002 that was eventually found to be a perforated. Patient states she has had point abdominal tenderness in the left epigastric area. Patient has had nausea and vomiting for the last 4 days and has not been tolerating much p.o. at that time. Patient went to see her PCP and then became lightheaded. Patient was then transferred to the ER for further evaluation. Dr. Mays was consulted and had planned to complete an EGD tomorrow (Friday). Patient had been initiated on a Protonix drip. On 12/10/2016, patient was noted to be hypotensive with systolic blood pressures in the 80s. Morning labs showed a hemoglobin of 5.2, which is a significant drop from patient's previous of 9.[address] an NG on the floor were unsuccessful. Patient was then transferred to the intensive care unit for initiation of blood transfusions. On arrival to the intensive care unit, patient was extremely pale in appearance, but was not reporting any symptoms. Patient did not report any hematemesis. Patient has reported dark stools, but associates this with her use of iron that she was recently placed on. Patient states stools were not sticking to the bowl. Patient continues to have her abdominal pain, but states it is only bad when someone pushes on the right spot. Patient does state that she has had a gastric bypass in the past and also has a history of oversewn ulcer. I did speak with Judith Hancock on the phone about patient's current condition. No hemodynamic instability is noted at this time, but recommendations from Dr. Mays include possible transfer if EGD cannot be completed today. Dr. Mays is currently in surgery at another facility and will not be able to perform this today. Past Medical History Past Medical History (Chronic Problems): Chronic Problems CKD (chronic kidney disease) (Chronic) Hypothyroid (Chronic) Vitamin D deficiency (Chronic) Allergies Penicillins [PCN] Allergy (Verified 11/21/16 15:09) Angioedema PENTANYLBUPIVACAINE Allergy (Uncoded 11/21/16 15:09) Other Home Medications: Ambulatory Orders Medication Instructions Recorded Sucralfate [Carafate] 1 gm PO TID 11/21/16 Ferrous Sulfate [Iron] 325 mg PO BID #60 tablet 11/25/16 Levothyroxine [Synthroid] 50 mcg PO DAILY@0600 #30 tablet 11/25/16 Sodium Bicarbonate 650 mg PO BID #60 tablet 11/25/16 Ascorbic Acid [Vitamin C] 500 mg PO BID 12/09/16 Cyanocobalamin (Vitamin B-12) 1,500 mcg PO DAILY 12/09/16 [Vitamin B-12] Surgical History: appendectomy, cholecystectomy, hysterectomy, - - gastric bypass, colectemy, vocal cord polyp, egd Smoking Status: Never smoker - *Family History Maternal History Items: - - pneumonia Paternal History Items: - - in a boating accident Sibling History Items: Heart Disease, Renal Disease - On dialysis following open heart surgery Review of Systems Comment: See HPI, otherwise negative ?10 systems. Patient Problems: Active and Suspected Problems Abdominal pain (Acute) Anemia associated with acute blood loss (Acute) Nausea and vomiting (Acute) Objective: CT scan on presentation was personally reviewed. This does show some areas of thickened stomach, but no obvious perforation is appreciated. - Physical Exam General: Alert, Oriented x3, Cooperative, No apparent distress, - - Pale in appearance. HEENT: Atraumatic, PERRLA, EOMI, Normocephalic, - - No scleral icterus or injection noted. Pale conjunctivae. Oral: No Gingival or Mucosal Lesions/ Ulcerations, - - Pale mucous membranes. Neck: Supple, No JVD, No Nodes, Trachea Midline Lungs: No rhonchi, No wheeze, No rales, Diminished, - - Symmetric expansion. No dullness to percussion. Cardiovascular: Regular rate, Regular Rhythm, Normal S1, Normal S2, No murmurs, No rub noted, No Gallop Abdomen: Bowel Sounds Present, Soft, Tender - Point tenderness with rebound on the left side of the epigastric area. No rebound tenderness anywhere else throughout the abdomen. Extremities: No clubbing, No cyanosis, No edema, Capillary Refill Less than 3 Seconds Skin: No rashes, No breakdown Musculoskeletal: No Tenderness to Palpation of Joints or Extremities, No Muscle Wasting Lymphatic: No Cervical, Supraclavicular, or Inguinal Adenopathy Neurological: Cranial nerves II-XII grossly intact, Neuro grossly intact, Motor Exam 5/5 strength throughout Psych/Mental Status: Alert and oriented to time, place, person, mood and affect Vital Signs Temp Pulse Resp BP Pulse Ox 37.3 C 77 16 98/72 100 12/10/16 12:06 12/10/16 12:06 12/10/16 12:06 12/10/16 12:06 12/10/16 12:06 Oxygen Flow Rate 1 Oxygen Delivery Method Nasal Cannula Weight: 57 kg Body Mass Index (BMI) 22.2 Intake and Output for Last 24 Hours 12/08/16 12/09/16 12/10/16 23:59 23:59 23:59 Intake Total 432 Output Total 500 Balance -68 Laboratory Tests Past 24 Hrs 12/10/16 12/10/16 12/10/16 06:30 06:30 08:21 WBC Cancelled 5.6 Corrected WBC Cancelled RBC Cancelled 1.70 L Hgb Cancelled 5.4 L* Hct Cancelled 17.1 L MCV Cancelled 100.6 H MCH Cancelled 31.8 MCHC Cancelled 31.6 L RDW Cancelled 13.0 RDW Differential Cancelled 45.4 H Plt Count Cancelled 167 MPV Cancelled 10.7 Immature Gran % (Auto) Cancelled 0.400 Neut % (Auto) Cancelled 53.1 Lymph % (Auto) Cancelled 35.1 [place] % (Auto) Cancelled 9.8 Eos % (Auto) Cancelled 1.2 Baso % (Auto) Cancelled 0.4 Immature Gran # (Auto) Cancelled Absolute Neuts (auto) Cancelled 3.0 Absolute Lymphs (auto) Cancelled 1.98 Absolute Monos (auto) Cancelled Total Counted Cancelled Not Reportable Neutrophils % (Manual) Cancelled Band Neutrophils % Cancelled Lymphocytes % (Manual) Cancelled Monocytes % (Manual) Cancelled Eosinophils % (Manual) Cancelled Basophils % (Manual) Cancelled Metamyelocytes % Cancelled Myelocytes % Cancelled Promyelocytes % Cancelled Blast Cells % Cancelled Plasma Cell % (Manual) Cancelled Other Cells % Cancelled Lymphocytes # Cancelled Nucleated RBCs/100 WBC Cancelled Differential Comment Cancelled Diff Path Review Cancelled May foll Hypersegmented Neuts Cancelled Atypical Lymphocytes Cancelled Reactive Lymphocytes Cancelled Smudge Cells Cancelled Eosinophilia # Cancelled Basophilia # Cancelled Toxic Granulation Cancelled Dohle Bodies Cancelled Catalina Rods Cancelled Platelet Estimate Cancelled Plt Morphology Comment Cancelled RBC Morphology Cancelled Polychromasia Cancelled 2+ Hypochromasia Cancelled 3+ Poikilocytosis Cancelled Basophilic Stippling Cancelled Anisocytosis Cancelled Microcytosis Cancelled Macrocytosis Cancelled 1+ Spherocytes Cancelled Sickle Cells Cancelled Target Cells Cancelled Tear Drop Cells Cancelled Ovalocytes Cancelled Stomatocytes Cancelled Ramires-Oldenburg Bodies Cancelled Montse Cells Cancelled Bite Cells Cancelled Acanthocytes (Spur) Cancelled Rouleaux Cancelled Schistocytes Cancelled ESR PT INR APTT Sodium Cancelled Potassium Cancelled Chloride Cancelled Carbon Dioxide Cancelled Anion Gap Cancelled BUN Cancelled Creatinine Cancelled Estim Creat Clear Calc Cancelled Est GFR (MDRD) Af Amer Cancelled Est GFR (MDRD) Non-Af Cancelled BUN/Creatinine Ratio Cancelled Glucose Cancelled Calcium Cancelled Total Bilirubin Cancelled AST Cancelled ALT Cancelled Alkaline Phosphatase Cancelled Total Protein Cancelled Albumin Cancelled Globulin Cancelled Albumin/Globulin Ratio Cancelled Free T4 Miscellaneous Test Blood Type Antibody Screen Crossmatch 12/10/16 12/10/16 12/10/16 08:21 08:21 08:50 WBC Corrected WBC RBC Hgb Hct MCV MCH MCHC RDW RDW Differential Plt Count MPV Immature Gran % (Auto) Neut % (Auto) Lymph % (Auto) [place] % (Auto) Eos % (Auto) Baso % (Auto) Immature Gran # (Auto) Absolute Neuts (auto) Absolute Lymphs (auto) Absolute Monos (auto) Total Counted Neutrophils % (Manual) Band Neutrophils % Lymphocytes % (Manual) Monocytes % (Manual) Eosinophils % (Manual) Basophils % (Manual) Metamyelocytes % Myelocytes % Promyelocytes % Blast Cells % Plasma Cell % (Manual) Other Cells % Lymphocytes # Nucleated RBCs/100 WBC Differential Comment Diff Path Review Hypersegmented Neuts Atypical Lymphocytes Reactive Lymphocytes Smudge Cells Eosinophilia # Basophilia # Toxic Granulation Dohle Bodies Catalina Rods Platelet Estimate Plt Morphology Comment RBC Morphology Polychromasia Hypochromasia Poikilocytosis Basophilic Stippling Anisocytosis Microcytosis Macrocytosis Spherocytes Sickle Cells Target Cells Tear Drop Cells Ovalocytes Stomatocytes Ramires-Oldenburg Bodies Montse Cells Bite Cells Acanthocytes (Spur) Rouleaux Schistocytes ESR PT INR APTT Sodium 143 Potassium 4.5 Chloride 115 H Carbon Dioxide 17.0 L Anion Gap 11 BUN 37 H Creatinine 1.63 H Estim Creat Clear Calc 24.67 Est GFR (MDRD) Af Amer 40 L Est GFR (MDRD) Non-Af 33 L BUN/Creatinine Ratio 22.7 H Glucose 90 Calcium 7.2 L Total Bilirubin 0.20 AST 10 L ALT 12 Alkaline Phosphatase 87 Total Protein 4.3 L Albumin 2.0 L Globulin 2.3 Albumin/Globulin Ratio 0.9 Free T4 0.67 L Miscellaneous Test Blood Type O POSITIVE Antibody Screen NEGATIVE Crossmatch See Detail 12/10/16 12/10/16 12/10/16 08:50 08:50 12:00 WBC Corrected WBC RBC Hgb 5.2 L* Hct 16.9 L MCV MCH MCHC RDW RDW Differential Plt Count MPV Immature Gran % (Auto) Neut % (Auto) Lymph % (Auto) [place] % (Auto) Eos % (Auto) Baso % (Auto) Immature Gran # (Auto) Absolute Neuts (auto) Absolute Lymphs (auto) Absolute Monos (auto) Total Counted Neutrophils % (Manual) Band Neutrophils % Lymphocytes % (Manual) Monocytes % (Manual) Eosinophils % (Manual) Basophils % (Manual) Metamyelocytes % Myelocytes % Promyelocytes % Blast Cells % Plasma Cell % (Manual) Other Cells % Lymphocytes # Nucleated RBCs/100 WBC Differential Comment Diff Path Review Hypersegmented Neuts Atypical Lymphocytes Reactive Lymphocytes Smudge Cells Eosinophilia # Basophilia # Toxic Granulation Dohle Bodies Catalina Rods Platelet Estimate Plt Morphology Comment RBC Morphology Polychromasia Hypochromasia Poikilocytosis Basophilic Stippling Anisocytosis Microcytosis Macrocytosis Spherocytes Sickle Cells Target Cells Tear Drop Cells Ovalocytes Stomatocytes Ramires-Oldenburg Bodies Montse Cells Bite Cells Acanthocytes (Spur) Rouleaux Schistocytes ESR 1 PT 15.5 H INR 1.3 APTT 50.1 H Sodium Potassium Chloride Carbon Dioxide Anion Gap BUN Creatinine Estim Creat Clear Calc Est GFR (MDRD) Af Amer Est GFR (MDRD) Non-Af BUN/Creatinine Ratio Glucose Calcium Total Bilirubin AST ALT Alkaline Phosphatase Total Protein Albumin Globulin Albumin/Globulin Ratio Free T4 Miscellaneous Test Cancelled Blood Type Antibody Screen Crossmatch Assessment/Plan Active and Suspected Problems Abdominal pain (Acute) Anemia associated with acute blood loss (Acute) Nausea and vomiting (Acute) RECOMMENDATIONS: 1. Transfusions as ordered 2. H&H every 6 3. Upper endoscopy per general surgery 4. Continue Protonix drip 5. Normal saline bolus as necessary for hypotension IMPRESSIONS: 1. Hypovolemic shock secondary to acute upper GI bleed She with hypotension on the floor with significant drop in H&H. Patient has not had any visible signs of bleeding, but some concern for a duodenal bleed. Patient does have chronic ulcers noted in the past by patient's primary surgeon. Patient does have blood already ordered. Will bolus with normal saline if necessary for blood pressure. Patient states that she is willing to wait for Dr. Mays to perform the procedure. Patient would not like to be transferred at this time. H&H every 6 with plans to keep hemoglobin greater than 8 given active bleeding. 2. Chronic kidney disease Patient's creatinine appears to be at its baseline. Will avoid IV contrast if possible. Continue to support blood pressure. Will check labs in the morning and replete as necessary. 3. Vitamin D deficiency/advanced age/hypothyroidism Dr. Bass care, management, recovery and prognosis. Patient currently n.p.o. for possible procedure later tonight. Addendum 1717: Asked by Dr. Mays to provide conscious sedation for the procedure. After confirmation of informed consent, the patient was placed in appropriate position. Cetacaine spray was used to dull the gag reflex. The patient was given 40 mg of propofol and [address] Mays proceeded with the procedure. There were multiple ulcers noted at the anastomosis site. One appear to be healing. There was another with a associated clot. This was not actively bleeding. No interventions were taken. There was another area that appear to have an old clip. TIME: 32 minutes of critical care time was spent addressing patient's hypovolemic shock secondary to upper GI bleed, providing conscious sedation, review of all data and collaboration with care team.
--- NOTE | 2016-12-10 17:25 | PCM.OPRPT ---
Report of Operation Date of Procedure: 12/10/16 Pre-Operative Diagnosis: upper GI bleed Post-Operative Diagnosis: anastomotic ulcers Surgery/Procedure Performed:: EGD Description of Surgical Findings:: two ulcers at anastomotic site, one with clot overlying it, the other healing, no active bleeding noted, no blood clots or streaking in the upper GI tract Type of Anesthesia:: IV Sedation Anesthesiologist: Tushar Garcia Specimen's removed: none Estimated Blood Loss (mL): none Fluids Replaced: 200 cc NS Description of Procedure: After informed consent was given, the patient states that she is ready to proceed. Procedure was done in the ICU. Appropriate time out protocol was followed. Appropriate cardiac, blood pressure, and pulse oximetry monitoring was placed. After stable vital signs were noted, the patient was given intravenous conscious sedation by Dr. Garcia. The posterior pharynx was sprayed with lidocaine spray times two and a bite block was placed. The patient was then placed in the left lateral decubitis position. The upper endoscope was lubricated and inserted into the patients mouth and then carefully placed into the patients throat. The patient was asked to swallow and the endoscope was then easily advanced into the patients esophagus. The endoscope was further advanced down into the patients stomach. The patient had surgical removal of the distal stomach. The anastomosis to the small intestine was seen. It was intact. There were two anastomotic ulcers noted. One was healing, the other just distal to the anastomosis had a clot overlying it. There was no active bleeding noted. There was no blood clots or blood streaks noted distal to this in the small bowel. There was no blood flecks noted in the stomach, upon entrance into the stomach. No other lesions were noted in the stomach. The endoscope was retracted into the esophagus, where any insufflated gas in the stomach was aspirated out. The upper endoscope was removed intact. No complications were noted during the procedure. - Complications none noted - Admit VTE Documentation VTE Present on Admission: Yes VTE Mechan Device Prophylaxis: SCD's
--- NOTE | 2016-12-10 17:30 | OP.PCM_ITS ---
Report of Operation Date of Procedure: 12/10/16 Pre-Operative Diagnosis: upper GI bleed Post-Operative Diagnosis: anastomotic ulcers Surgery/Procedure Performed:: EGD Description of Surgical Findings:: two ulcers at anastomotic site, one with clot overlying it, the other healing, no active bleeding noted, no blood clots or streaking in the upper GI tract Type of Anesthesia:: IV Sedation Anesthesiologist: Tushar Garcia Specimen's removed: none Estimated Blood Loss (mL): none Fluids Replaced: 200 cc NS Description of Procedure: After informed consent was given, the patient states that she is ready to proceed. Procedure was done in the ICU. Appropriate time out protocol was followed. Appropriate cardiac, blood pressure, and pulse oximetry monitoring was placed. After stable vital signs were noted, the patient was given intravenous conscious sedation by Dr. Garcia. The posterior pharynx was sprayed with lidocaine spray times two and a bite block was placed. The patient was then placed in the left lateral decubitis position. The upper endoscope was lubricated and inserted into the patient?s mouth and then carefully placed into the patient?s throat. The patient was asked to swallow and the endoscope was then easily advanced into the patient?s esophagus. The endoscope was further advanced down into the patient?s stomach. The patient had surgical removal of the distal stomach. The anastomosis to the small intestine was seen. It was intact. There were two anastomotic ulcers noted. One was healing, the other just distal to the anastomosis had a clot overlying it. There was no active bleeding noted. There was no blood clots or blood streaks noted distal to this in the small bowel. There was no blood flecks noted in the stomach, upon entrance into the stomach. No other lesions were noted in the stomach. The endoscope was retracted into the esophagus, where any insufflated gas in the stomach was aspirated out. The upper endoscope was removed intact. No complications were noted during the procedure. - Complications none noted - Admit VTE Documentation VTE Present on Admission: Yes VTE Mechan Device Prophylaxis: SCD's
[2016-12-10] MEDS: BENZOCAINE/MENTHOL 1 LOZENGE MUCOUS MEM (18:14)
[2016-12-10 20:39] LABS: Hematocrit 24.3 % (37-47); Hemoglobin 7.6 g/dl (12.0-15.0)
[2016-12-10] MEDS: Acetaminophen 325 MG Tablet 650 MG PO (22:57)
[2016-12-10 23:55] LABS: Lactic Acid 0.8 mmol/L (0.4-2.0)
[2016-12-11] VITALS (22 sets, daily range): BP systolic 80–99; BP diastolic 47–66; PULSE 71–99; RESP 16–24; TEMP 37.1–38.7; O2SAT 95–100
[2016-12-11 00:29] LABS: Hematocrit 26.4 % (37-47); Hemoglobin 8.5 g/dl (12.0-15.0)
[2016-12-11 00:48] LABS: Probe Check PASS; Specimen Processing Control PASS
[2016-12-11 00:50] LABS: M R Staph aureus DNA By PCR POSITIVE (Negative)
--- NOTE | 2016-12-11 01:04 | RAD_ITS ---
STUDY: X-RAY CHEST REASON FOR EXAM: Female, 76 years old. Fever. TECHNIQUE: Single AP portable view of the chest. COMPARISON: 11/21/2016. FINDINGS: There again is a dense nodule in the left lower lung unchanged since prior examination measuring about 2.4 cm. There is new infiltrate in the left perihilar and left lower lung zones. The lungs remain hyperinflated. There is no demonstrated pleural abnormality. Normal size heart. Normal mediastinum and yaima. Normal visualized pulmonary arteries. There is atherosclerotic calcification of the aortic arch with tortuosity. The bony structures are unchanged. There is no demonstrated abnormality of the visualized soft tissue structures of the upper abdomen. RAD/Chest 1 View (Portable) IMPRESSION: New infiltrate in the left perihilar and left lower lung zones. Dense nodule in the left lower lung unchanged since prior exam. Electronically Signed: Hugo Guevara MD at 2:27 EDT Tel , Service support ,
[2016-12-11 01:40] LABS: Bacteria 0 SEEN /hpf (None Seen); Mucous, Urine 0 SEEN /hpf (<or=2+); Red Blood Cells-Urine 0 SEEN /hpf (0-5)
[2016-12-11 01:43] LABS: Color, Urine Yellow (Yellow); Glucose, Dipstick Normal (Normal); Ketone-Dipstick 5 mg/dl (Negative); Leukocyte Esterase-Dipstick 500 /ul (Negative); Nitrite-Dipstick Negative (Negative); Occult Blood-Urine 50 /ul (Negative); Protein-Dipstick 15 mg/dl (Negative); Urine Bilirubin Dipstick Negative (Negative); Urine Clarity Clear (Clear); Urine Urobilinogen Normal (Normal)
[2016-12-11 01:50] LABS: Squamous Epithelial Cells - UA 0-5 SEEN /hpf (5-10); White Blood Cells 10-25 SEEN /hpf (0-5)
[2016-12-11] MEDS: Levothyroxine 50 MCG Tablet PO (06:11)
[2016-12-11 06:43] LABS: Hematocrit 25.3 % (37-47); Hemoglobin 8.1 g/dl (12.0-15.0); Mean Corpuscular Hgb 30.3 pg (27.0-32.0); Mean Corpuscular Volume 94.8 fL (81-99); Mean Platelet Vol. 10.4 fl (6.2-12.0); Platelet Count 139 K/mm3 (150-450); RBC Distribution Width CV 16.1 % (11.6-14.6); RBC Distribution Width SD 56.3 fl (35.1-43.9); Red Blood Count 2.67 M/mm3 (4.2-5.4); White Blood Count 10.1 K/mm3 (4.4-11.0)
[2016-12-11 06:44] LABS: Scan Indicated on CBC? Y/N NO
[2016-12-11 06:59] LABS: Anion Gap 8 (5-15); BUN 33 mg/dL (7-18); BUN/Creat Ratio 19.4 RATIO (10-20); Calcium,Total 7.3 mg/dL (8.5-10.1); Chloride 117 mmol/L (98-107); EST Glomerular Filtration Rate 31 mL/min (>60); Est Glom Filt Rate - Afr Amer 38 mL/min (>60); Estimated Creatinine Clearance 23.65 ml/min; Glucose 80 mg/dL (70-110); Potassium 4.1 mmol/L (3.5-5.1); Sodium Level 143 mmol/L (136-145)
--- NOTE | 2016-12-11 07:38 | PN_ITS ---
Subjective: Patient did well overnight. Patient did have an EGD yesterday that was able to show the source of the bleeding. No intervention was completed. Patient reports no symptoms at this time and is asking to go home. Patient has tolerated blood transfusions well. Patient did have a fever overnight with lower blood pressure while sleeping. No intervention was required. General: Alert, Oriented x3, Cooperative, No apparent distress, - - Speaking in full sentences. HEENT: Atraumatic, PERRLA, EOMI, Normocephalic, - - No scleral icterus or injection noted. Better color compared to previous examination Oral: Moist Mucosa, No Gingival or Mucosal Lesions/ Ulcerations Neck: Supple, No JVD, No Nodes, Trachea Midline Lungs: Clear to auscultation, Normal air movement, No rhonchi, No wheeze, No rales Cardiovascular: Regular rate, Regular Rhythm, Normal S1, Normal S2, No murmurs, No rub noted, No Gallop Abdomen: Bowel Sounds Present, Soft, Non Tender, Non-Distended Extremities: No clubbing, No cyanosis, No edema, Capillary Refill Less than 3 Seconds Skin: No rashes, No breakdown Musculoskeletal: No Tenderness to Palpation of Joints or Extremities, No Muscle Wasting Lymphatic: No Cervical, Supraclavicular, or Inguinal Adenopathy Neurological: Cranial nerves II-XII grossly intact, Neuro grossly intact, Motor Exam 5/5 strength throughout Psych/Mental Status: Alert and oriented to time, place, person, mood and affect Vital Signs Temp Pulse Resp BP Pulse Ox 37.2 C 74 18 88/52 99 12/11/16 07:00 12/11/16 07:00 12/11/16 07:00 12/11/16 07:00 12/11/16 07:00 Oxygen Flow Rate 2 Oxygen Delivery Method Room Air Weight: 59.9 kg Body Mass Index (BMI) 22.2 Intake and Output for Last 24 Hours 12/09/16 12/10/16 12/11/16 23:59 23:59 23:59 Intake Total 1432 783 Output Total 1500 800 Balance -68 -17 Labs (Last 48 Hours) 12/10/16 12/10/16 12/10/16 06:30 06:30 08:21 WBC Cancelled 5.6 Corrected WBC Cancelled RBC Cancelled 1.70 L Hgb Cancelled 5.4 L* Hct Cancelled 17.1 L MCV Cancelled 100.6 H MCH Cancelled 31.8 MCHC Cancelled 31.6 L RDW Cancelled 13.0 RDW Differential Cancelled 45.4 H Plt Count Cancelled 167 MPV Cancelled 10.7 Immature Gran % (Auto) Cancelled 0.400 Neut % (Auto) Cancelled 53.1 Lymph % (Auto) Cancelled 35.1 Mitchell % (Auto) Cancelled 9.8 Eos % (Auto) Cancelled 1.2 Baso % (Auto) Cancelled 0.4 Immature Gran # (Auto) Cancelled Absolute Neuts (auto) Cancelled 3.0 Absolute Lymphs (auto) Cancelled 1.98 Absolute Monos (auto) Cancelled Total Counted Cancelled Not Reportable Neutrophils % (Manual) Cancelled Band Neutrophils % Cancelled Lymphocytes % (Manual) Cancelled Monocytes % (Manual) Cancelled Eosinophils % (Manual) Cancelled Basophils % (Manual) Cancelled Metamyelocytes % Cancelled Myelocytes % Cancelled Promyelocytes % Cancelled Blast Cells % Cancelled Plasma Cell % (Manual) Cancelled Other Cells % Cancelled Lymphocytes # Cancelled Nucleated RBCs/100 WBC Cancelled Differential Comment Cancelled Diff Path Review Cancelled May foll Hypersegmented Neuts Cancelled Atypical Lymphocytes Cancelled Reactive Lymphocytes Cancelled Smudge Cells Cancelled Eosinophilia # Cancelled Basophilia # Cancelled Toxic Granulation Cancelled Dohle Bodies Cancelled [place] Cancelled Platelet Estimate Cancelled Plt Morphology Comment Cancelled RBC Morphology Cancelled Polychromasia Cancelled 2+ Hypochromasia Cancelled 3+ Poikilocytosis Cancelled Basophilic Stippling Cancelled Anisocytosis Cancelled Microcytosis Cancelled Macrocytosis Cancelled 1+ Spherocytes Cancelled Sickle Cells Cancelled Target Cells Cancelled Tear Drop Cells Cancelled Ovalocytes Cancelled Stomatocytes Cancelled [place] Bodies Cancelled [place] Cells Cancelled Bite Cells Cancelled Acanthocytes (Spur) Cancelled Rouleaux Cancelled Schistocytes Cancelled ESR PT INR APTT Sodium Cancelled Potassium Cancelled Chloride Cancelled Carbon Dioxide Cancelled Anion Gap Cancelled BUN Cancelled Creatinine Cancelled Estim Creat Clear Calc Cancelled Est GFR (MDRD) Af Amer Cancelled Est GFR (MDRD) Non-Af Cancelled BUN/Creatinine Ratio Cancelled Glucose Cancelled Lactic Acid Calcium Cancelled Total Bilirubin Cancelled AST Cancelled ALT Cancelled Alkaline Phosphatase Cancelled Total Protein Cancelled Albumin Cancelled Globulin Cancelled Albumin/Globulin Ratio Cancelled Free T4 Urine Color Urine Clarity Urine pH Ur Specific [place] Urine Protein Urine Glucose (UA) Urine Ketones Urine Occult Blood Urine Nitrite Urine Bilirubin Urine Urobilinogen Ur Leukocyte Esterase Urine RBC Urine WBC Ur Squamous Epith Cells Urine Bacteria Urine Mucus MRSA (PCR) Miscellaneous Test Blood Type Antibody Screen Crossmatch 12/10/16 12/10/16 12/10/16 08:21 08:21 08:50 WBC Corrected WBC RBC Hgb Hct MCV MCH MCHC RDW RDW Differential Plt Count MPV Immature Gran % (Auto) Neut % (Auto) Lymph % (Auto) [place] % (Auto) Eos % (Auto) Baso % (Auto) Immature Gran # (Auto) Absolute Neuts (auto) Absolute Lymphs (auto) Absolute Monos (auto) Total Counted Neutrophils % (Manual) Band Neutrophils % Lymphocytes % (Manual) Monocytes % (Manual) Eosinophils % (Manual) Basophils % (Manual) Metamyelocytes % Myelocytes % Promyelocytes % Blast Cells % Plasma Cell % (Manual) Other Cells % Lymphocytes # Nucleated RBCs/100 WBC Differential Comment Diff Path Review Hypersegmented Neuts Atypical Lymphocytes Reactive Lymphocytes Smudge Cells Eosinophilia # Basophilia # Toxic Granulation Dohle Bodies [place] Platelet Estimate Plt Morphology Comment RBC Morphology Polychromasia Hypochromasia Poikilocytosis Basophilic Stippling Anisocytosis Microcytosis Macrocytosis Spherocytes Sickle Cells Target Cells Tear Drop Cells Ovalocytes Stomatocytes [place] Bodies [place] Cells Bite Cells Acanthocytes (Spur) Rouleaux Schistocytes ESR PT INR APTT Sodium 143 Potassium 4.5 Chloride 115 H Carbon Dioxide 17.0 L Anion Gap 11 BUN 37 H Creatinine 1.63 H Estim Creat Clear Calc 24.67 Est GFR (MDRD) Af Amer 40 L Est GFR (MDRD) Non-Af 33 L BUN/Creatinine Ratio 22.7 H Glucose 90 Lactic Acid Calcium 7.2 L Total Bilirubin 0.20 AST 10 L ALT 12 Alkaline Phosphatase 87 Total Protein 4.3 L Albumin 2.0 L Globulin 2.3 Albumin/Globulin Ratio 0.9 Free T4 0.67 L Urine Color Urine Clarity Urine pH Ur Specific [place] Urine Protein Urine Glucose (UA) Urine Ketones Urine Occult Blood Urine Nitrite Urine Bilirubin Urine Urobilinogen Ur Leukocyte Esterase Urine RBC Urine WBC Ur Squamous Epith Cells Urine Bacteria Urine Mucus MRSA (PCR) Miscellaneous Test Blood Type O POSITIVE Antibody Screen NEGATIVE Crossmatch See Detail 12/10/16 12/10/16 12/10/16 08:50 08:50 12:00 WBC Corrected WBC RBC Hgb 5.2 L* Hct 16.9 L MCV MCH MCHC RDW RDW Differential Plt Count MPV Immature Gran % (Auto) Neut % (Auto) Lymph % (Auto) [place] % (Auto) Eos % (Auto) Baso % (Auto) Immature Gran # (Auto) Absolute Neuts (auto) Absolute Lymphs (auto) Absolute Monos (auto) Total Counted Neutrophils % (Manual) Band Neutrophils % Lymphocytes % (Manual) Monocytes % (Manual) Eosinophils % (Manual) Basophils % (Manual) Metamyelocytes % Myelocytes % Promyelocytes % Blast Cells % Plasma Cell % (Manual) Other Cells % Lymphocytes # Nucleated RBCs/100 WBC Differential Comment Diff Path Review Hypersegmented Neuts Atypical Lymphocytes Reactive Lymphocytes Smudge Cells Eosinophilia # Basophilia # Toxic Granulation Dohle Bodies [place] Platelet Estimate Plt Morphology Comment RBC Morphology Polychromasia Hypochromasia Poikilocytosis Basophilic Stippling Anisocytosis Microcytosis Macrocytosis Spherocytes Sickle Cells Target Cells Tear Drop Cells Ovalocytes Stomatocytes [place] Bodies [place] Cells Bite Cells Acanthocytes (Spur) Rouleaux Schistocytes ESR 1 PT 15.5 H INR 1.3 APTT 50.1 H Sodium Potassium Chloride Carbon Dioxide Anion Gap BUN Creatinine Estim Creat Clear Calc Est GFR (MDRD) Af Amer Est GFR (MDRD) Non-Af BUN/Creatinine Ratio Glucose Lactic Acid Calcium Total Bilirubin AST ALT Alkaline Phosphatase Total Protein Albumin Globulin Albumin/Globulin Ratio Free T4 Urine Color Urine Clarity Urine pH Ur Specific [place] Urine Protein Urine Glucose (UA) Urine Ketones Urine Occult Blood Urine Nitrite Urine Bilirubin Urine Urobilinogen Ur Leukocyte Esterase Urine RBC Urine WBC Ur Squamous Epith Cells Urine Bacteria Urine Mucus MRSA (PCR) Miscellaneous Test Cancelled Blood Type Antibody Screen Crossmatch 12/10/16 12/10/16 12/10/16 20:15 22:50 23:15 WBC Corrected WBC RBC Hgb 7.6 L Hct 24.3 L MCV MCH MCHC RDW RDW Differential Plt Count MPV Immature Gran % (Auto) Neut % (Auto) Lymph % (Auto) [place] % (Auto) Eos % (Auto) Baso % (Auto) Immature Gran # (Auto) Absolute Neuts (auto) Absolute Lymphs (auto) Absolute Monos (auto) Total Counted Neutrophils % (Manual) Band Neutrophils % Lymphocytes % (Manual) Monocytes % (Manual) Eosinophils % (Manual) Basophils % (Manual) Metamyelocytes % Myelocytes % Promyelocytes % Blast Cells % Plasma Cell % (Manual) Other Cells % Lymphocytes # Nucleated RBCs/100 WBC Differential Comment Diff Path Review Hypersegmented Neuts Atypical Lymphocytes Reactive Lymphocytes Smudge Cells Eosinophilia # Basophilia # Toxic Granulation Dohle Bodies [place] Platelet Estimate Plt Morphology Comment RBC Morphology Polychromasia Hypochromasia Poikilocytosis Basophilic Stippling Anisocytosis Microcytosis Macrocytosis Spherocytes Sickle Cells Target Cells Tear Drop Cells Ovalocytes Stomatocytes [place] Bodies [place] Cells Bite Cells Acanthocytes (Spur) Rouleaux Schistocytes ESR PT INR APTT Sodium Potassium Chloride Carbon Dioxide Anion Gap BUN Creatinine Estim Creat Clear Calc Est GFR (MDRD) Af Amer Est GFR (MDRD) Non-Af BUN/Creatinine Ratio Glucose Lactic Acid 0.8 Calcium Total Bilirubin AST ALT Alkaline Phosphatase Total Protein Albumin Globulin Albumin/Globulin Ratio Free T4 Urine Color Urine Clarity Urine pH Ur Specific [place] Urine Protein Urine Glucose (UA) Urine Ketones Urine Occult Blood Urine Nitrite Urine Bilirubin Urine Urobilinogen Ur Leukocyte Esterase Urine RBC Urine WBC Ur Squamous Epith Cells Urine Bacteria Urine Mucus MRSA (PCR) POSITIVE H Miscellaneous Test Blood Type Antibody Screen Crossmatch 12/11/16 12/11/16 12/11/16 00:15 01:20 06:30 WBC 10.1 Corrected WBC RBC 2.67 L Hgb 8.5 L 8.1 L Hct 26.4 L 25.3 L MCV 94.8 MCH 30.3 MCHC 32.0 RDW 16.1 H RDW Differential 56.3 H Plt Count 139 L MPV 10.4 Immature Gran % (Auto) Neut % (Auto) Lymph % (Auto) [place] % (Auto) Eos % (Auto) Baso % (Auto) Immature Gran # (Auto) Absolute Neuts (auto) Absolute Lymphs (auto) Absolute Monos (auto) Total Counted Neutrophils % (Manual) Band Neutrophils % Lymphocytes % (Manual) Monocytes % (Manual) Eosinophils % (Manual) Basophils % (Manual) Metamyelocytes % Myelocytes % Promyelocytes % Blast Cells % Plasma Cell % (Manual) Other Cells % Lymphocytes # Nucleated RBCs/100 WBC Differential Comment Diff Path Review Hypersegmented Neuts Atypical Lymphocytes Reactive Lymphocytes Smudge Cells Eosinophilia # Basophilia # Toxic Granulation Dohle Bodies [place] Platelet Estimate Plt Morphology Comment RBC Morphology Polychromasia Hypochromasia Poikilocytosis Basophilic Stippling Anisocytosis Microcytosis Macrocytosis Spherocytes Sickle Cells Target Cells Tear Drop Cells Ovalocytes Stomatocytes [place] Bodies [place] Cells Bite Cells Acanthocytes (Spur) Rouleaux Schistocytes ESR PT INR APTT Sodium Potassium Chloride Carbon Dioxide Anion Gap BUN Creatinine Estim Creat Clear Calc Est GFR (MDRD) Af Amer Est GFR (MDRD) Non-Af BUN/Creatinine Ratio Glucose Lactic Acid Calcium Total Bilirubin AST ALT Alkaline Phosphatase Total Protein Albumin Globulin Albumin/Globulin Ratio Free T4 Urine Color Yellow Urine Clarity Clear Urine pH 6.0 Ur Specific [place] 1.010 Urine Protein 15 H Urine Glucose (UA) Normal Urine Ketones 5 H Urine Occult Blood 50 H Urine Nitrite Negative Urine Bilirubin Negative Urine Urobilinogen Normal Ur Leukocyte Esterase 500 H Urine RBC 0 SEEN Urine WBC 10-25 SEEN Ur Squamous Epith Cells 0-5 SEEN Urine Bacteria 0 SEEN Urine Mucus 0 SEEN MRSA (PCR) Miscellaneous Test Blood Type Antibody Screen Crossmatch 12/11/16 06:30 WBC Corrected WBC RBC Hgb Hct MCV MCH MCHC RDW RDW Differential Plt Count MPV Immature Gran % (Auto) Neut % (Auto) Lymph % (Auto) [place] % (Auto) Eos % (Auto) Baso % (Auto) Immature Gran # (Auto) Absolute Neuts (auto) Absolute Lymphs (auto) Absolute Monos (auto) Total Counted Neutrophils % (Manual) Band Neutrophils % Lymphocytes % (Manual) Monocytes % (Manual) Eosinophils % (Manual) Basophils % (Manual) Metamyelocytes % Myelocytes % Promyelocytes % Blast Cells % Plasma Cell % (Manual) Other Cells % Lymphocytes # Nucleated RBCs/100 WBC Differential Comment Diff Path Review Hypersegmented Neuts Atypical Lymphocytes Reactive Lymphocytes Smudge Cells Eosinophilia # Basophilia # Toxic Granulation Dohle Bodies [place] Platelet Estimate Plt Morphology Comment RBC Morphology Polychromasia Hypochromasia Poikilocytosis Basophilic Stippling Anisocytosis Microcytosis Macrocytosis Spherocytes Sickle Cells Target Cells Tear Drop Cells Ovalocytes Stomatocytes [place] Bodies [place] Cells Bite Cells Acanthocytes (Spur) Rouleaux Schistocytes ESR PT INR APTT Sodium 143 Potassium 4.1 Chloride 117 H Carbon Dioxide 18.0 L Anion Gap 8 BUN 33 H Creatinine 1.70 H Estim Creat Clear Calc 23.65 Est GFR (MDRD) Af Amer 38 L Est GFR (MDRD) Non-Af 31 L BUN/Creatinine Ratio 19.4 Glucose 80 Lactic Acid Calcium 7.3 L Total Bilirubin AST ALT Alkaline Phosphatase Total Protein Albumin Globulin Albumin/Globulin Ratio Free T4 Urine Color Urine Clarity Urine pH Ur Specific [place] Urine Protein Urine Glucose (UA) Urine Ketones Urine Occult Blood Urine Nitrite Urine Bilirubin Urine Urobilinogen Ur Leukocyte Esterase Urine RBC Urine WBC Ur Squamous Epith Cells Urine Bacteria Urine Mucus MRSA (PCR) Miscellaneous Test Blood Type Antibody Screen Crossmatch Clinical Impression(s) from Imaging Studies Chest X-Ray 12/11/16 01:04 IMPRESSION: New infiltrate in the left perihilar and left lower lung zones. Dense nodule in the left lower lung unchanged since prior exam. Electronically Signed: Hugo Guevara MD at 2:27 EDT Tel , Service support , Assessment/Plan Active and Suspected Problems Abdominal pain (Acute) Anemia associated with acute blood loss (Acute) Nausea and vomiting (Acute) RECOMMENDATIONS: 1. Likely okay to decrease frequency of H&H 2. Likely okay to transition to p.o. PPI 3. Follow-up with outpatient surgery for possible resection 4. Okay to leave the intensive care unit from my perspective IMPRESSIONS: 1. Hypovolemic shock secondary to acute upper GI bleed Patient with endoscopy yesterday that was able to show a nonbleeding ulcer. This is once again at the area of the anastomosis. No intervention was undertaken. H&H has remained stable overnight. Defer to surgery, but patient can likely leave the intensive care unit. Recommendations from surgery are the patient follow-up as an outpatient for possible resection of the affected area as there are lesions noted almost circumferentially around the anastomosis site. Diet per surgery. 2. Chronic kidney disease Patient's creatinine appears to be at its baseline. Will avoid IV contrast if possible. Continue to support blood pressure. Will check labs in the morning and replete as necessary. 3. Vitamin D deficiency/advanced age/hypothyroidism Dr. Bass care, management, recovery and prognosis. Patient currently n.p.o. for possible procedure later tonight.
--- NOTE | 2016-12-11 10:22 | CASEMGMT ---
RN CM met with patient; introduced self and role. Patient agreeable to participate in RN CM assessment. See link for further details. Disposition Plan: Return home with support of family and with follow-up plans in place.
[2016-12-11] MEDS: levoFLOXacin 250 MG Tablet PO (11:13)
[2016-12-11] MEDS: metroNIDAZOLE 500 MG Tablet PO ×2 (13:08→22:17)
--- NOTE | 2016-12-11 14:34 | PCM.PN.HOSP ---
Patient Problems: Active and Suspected Problems Abdominal pain (Acute) Anemia associated with acute blood loss (Acute) Nausea and vomiting (Acute) Vitals/I&O's: Vital Signs Temp Pulse Resp BP Pulse Ox 98.8 F 84 18 95/53 98 12/11/16 12:00 12/11/16 13:00 12/11/16 13:00 12/11/16 13:00 12/11/16 13:00 Oxygen Flow Rate 2 Oxygen Delivery Method Room Air Weight: 59.9 kg Body Mass Index (BMI) 22.2 Intake and Output for Last 24 Hours 12/09/16 12/10/16 12/11/16 23:59 23:59 23:59 Intake Total 1432 783 Output Total 1500 800 General: Alert, Oriented x3 HEENT: Atraumatic Neck: Supple Lungs: Clear to auscultation, No wheeze, No rales Cardiovascular: Normal S1, Normal S2, No murmurs Abdomen: Bowel Sounds Present, Soft Extremities: No clubbing, Clubbing Skin: No rashes, No breakdown Neurological: Cranial nerves II-XII grossly intact, Motor Exam 5/5 strength throughout, Facial Droop, Slurred Speech Psych/Mental Status: Normal Affect Laboratory Results 12/10/16 08:50: Blood Type O POSITIVE, Antibody Screen NEGATIVE, Crossmatch See Detail 12/10/16 20:15: Hgb 7.6 L, Hct 24.3 L 12/10/16 22:50: MRSA (PCR) POSITIVE H 12/10/16 23:15: Lactic Acid 0.8 12/11/16 00:15: Hgb 8.5 L, Hct 26.4 L 12/11/16 01:20: Urine Color Yellow, Urine Clarity Clear, Urine pH 6.0, Ur Specific [place] 1.010, Urine Protein 15 H, Urine Glucose (UA) Normal, Urine Ketones 5 H, Urine Occult Blood 50 H, Urine Nitrite Negative, Urine Bilirubin Negative, Urine Urobilinogen Normal, Ur Leukocyte Esterase 500 H, Urine RBC 0 SEEN, Urine WBC 10-25 SEEN, Ur Squamous Epith Cells 0-5 SEEN, Urine Bacteria 0 SEEN, Urine Mucus 0 SEEN 12/11/16 06:30: WBC 10.1, RBC 2.67 L, Hgb 8.1 L, Hct 25.3 L, MCV 94.8, MCH 30.3, MCHC 32.0, RDW 16.1 H, RDW Differential 56.3 H, Plt Count 139 L, MPV 10.4 12/11/16 06:30: Sodium 143, Potassium 4.1, Chloride 117 H, Carbon Dioxide 18.0 L, Anion Gap 8, BUN 33 H, Creatinine 1.70 H, Estim Creat Clear Calc 23.65, Est GFR (MDRD) Af Amer 38 L, Est GFR (MDRD) Non-Af 31 L, BUN/Creatinine Ratio 19.4, Glucose 80, Calcium 7.3 L Current Medications Acetaminophen (Tylenol) 650 mg PO Q4H PRN PRN PRN Reason: fever > 100.1 Last Admin: 12/10/16 22:57 Dose: 650 mg Sodium Chloride () 250 mls @ 15 mls/hr IV .[id number] PRN PRN Reason: SALINE FLUSH Iron Sucrose 200 mg/ Sodium (Chloride) 110 mls @ 220 mls/hr IV X1 HALIE Stop: 12/13/16 14:36 Levofloxacin (Levaquin) 250 mg PO DAILY@0600 [facility] Levothyroxine Sodium (Synthroid) 50 mcg PO DAILY@0600 [facility] Last Admin: 12/11/16 06:11 Dose: 50 mcg Metronidazole (Flagyl) 500 mg PO TID [facility] Last Admin: 12/11/16 13:08 Dose: 500 mg Nutritional Formula (Lactose Free) (Ensure Enlive) 120 ml PO 4X/DAY [facility] Last Admin: 12/11/16 13:07 Dose: 120 ml Oxycodone HCl (Oxyir) 5 mg PO Q4H PRN PRN PRN Reason: PAIN Pantoprazole Sodium (Protonix) 40 mg PO BID [facility] Sodium Chloride () 5 - 30 ml IV UD PRN PRN Reason: SALINE FLUSH Throat Lozenges (Cepacol Sore Throat Lozenge) 1 lozenge MUCOUS MEM Q2H PRN PRN PRN Reason: SORE THROAT Last Admin: 12/10/16 18:14 Dose: 1 lozenge Assessment/Plan Active and Suspected Problems Abdominal pain (Acute) Anemia associated with acute blood loss (Acute) Nausea and vomiting (Acute) 1. Hypovolemic shock due acute GI bleed; she received IV fluids and packed RBCs and she is now hemodynamically stable. 2. acute blood loss anemia; she received PRBCs and she is stable, will give her IV iron. 3. Anastomotic ulcers; continue on Protonix 4 Abdominal pain due to # 3, this has now resolved. 4. Chronic kidney disease; we will avoid potential nephrotoxic medications, dose medications based on her current GFR. 5. diffuse wall thickening of stomach and small bowel; we will continue on IV Flagyl and Levaquin for possible infectious process. 6. Hypothyroidism; she is on Synthroid. 7. coagulopathy with an INR of 1.3, unclear etiology, her liver enzymes are normal and she is not on an anticoagulant from home. 8. Deconditioning ; PT OT as tolerated.
--- NOTE | 2016-12-11 14:39 | PN_ITS ---
Patient Problems: Active and Suspected Problems Abdominal pain (Acute) Anemia associated with acute blood loss (Acute) Nausea and vomiting (Acute) Vitals/I&O's: Vital Signs Temp Pulse Resp BP Pulse Ox 98.8 F 84 18 95/53 98 12/11/16 12:00 12/11/16 13:00 12/11/16 13:00 12/11/16 13:00 12/11/16 13:00 Oxygen Flow Rate 2 Oxygen Delivery Method Room Air Weight: 59.9 kg Body Mass Index (BMI) 22.2 Intake and Output for Last 24 Hours 12/09/16 12/10/16 12/11/16 23:59 23:59 23:59 Intake Total 1432 783 Output Total 1500 800 General: Alert, Oriented x3 HEENT: Atraumatic Neck: Supple Lungs: Clear to auscultation, No wheeze, No rales Cardiovascular: Normal S1, Normal S2, No murmurs Abdomen: Bowel Sounds Present, Soft Extremities: No clubbing, Clubbing Skin: No rashes, No breakdown Neurological: Cranial nerves II-XII grossly intact, Motor Exam 5/5 strength throughout, Facial Droop, Slurred Speech Psych/Mental Status: Normal Affect Laboratory Results 12/10/16 08:50: Blood Type O POSITIVE, Antibody Screen NEGATIVE, Crossmatch See Detail 12/10/16 20:15: Hgb 7.6 L, Hct 24.3 L 12/10/16 22:50: MRSA (PCR) POSITIVE H 12/10/16 23:15: Lactic Acid 0.8 12/11/16 00:15: Hgb 8.5 L, Hct 26.4 L 12/11/16 01:20: Urine Color Yellow, Urine Clarity Clear, Urine pH 6.0, Ur Specific [place] 1.010, Urine Protein 15 H, Urine Glucose (UA) Normal, Urine Ketones 5 H, Urine Occult Blood 50 H, Urine Nitrite Negative, Urine Bilirubin Negative, Urine Urobilinogen Normal, Ur Leukocyte Esterase 500 H, Urine RBC 0 SEEN, Urine WBC 10-25 SEEN, Ur Squamous Epith Cells 0-5 SEEN, Urine Bacteria 0 SEEN, Urine Mucus 0 SEEN 12/11/16 06:30: WBC 10.1, RBC 2.67 L, Hgb 8.1 L, Hct 25.3 L, MCV 94.8, MCH 30.3 , MCHC 32.0, RDW 16.1 H, RDW Differential 56.3 H, Plt Count 139 L, MPV 10.4 12/11/16 06:30: Sodium 143, Potassium 4.1, Chloride 117 H, Carbon Dioxide 18.0 L , Anion Gap 8, BUN 33 H, Creatinine 1.70 H, Estim Creat Clear Calc 23.65, Est GFR (MDRD) Af Amer 38 L, Est GFR (MDRD) Non-Af 31 L, BUN/Creatinine Ratio 19.4, Glucose 80, Calcium 7.3 L Current Medications Acetaminophen (Tylenol) 650 mg PO Q4H PRN PRN PRN Reason: fever > 100.1 Last Admin: 12/10/16 22:57 Dose: 650 mg Sodium Chloride () 250 mls @ 15 mls/hr IV .[id number] PRN PRN Reason: SALINE FLUSH Iron Sucrose 200 mg/ Sodium (Chloride) 110 mls @ 220 mls/hr IV X1 HALIE Stop: 12/13/16 14:36 Levofloxacin (Levaquin) 250 mg PO DAILY@0600 [facility] Levothyroxine Sodium (Synthroid) 50 mcg PO DAILY@0600 [facility] Last Admin: 12/11/16 06:11 Dose: 50 mcg Metronidazole (Flagyl) 500 mg PO TID [facility] Last Admin: 12/11/16 13:08 Dose: 500 mg Nutritional Formula (Lactose Free) (Ensure Enlive) 120 ml PO 4X/DAY [facility] Last Admin: 12/11/16 13:07 Dose: 120 ml Oxycodone HCl (Oxyir) 5 mg PO Q4H PRN PRN PRN Reason: PAIN Pantoprazole Sodium (Protonix) 40 mg PO BID [facility] Sodium Chloride () 5 - 30 ml IV UD PRN PRN Reason: SALINE FLUSH Throat Lozenges (Cepacol Sore Throat Lozenge) 1 lozenge MUCOUS MEM Q2H PRN PRN PRN Reason: SORE THROAT Last Admin: 12/10/16 18:14 Dose: 1 lozenge Assessment/Plan Active and Suspected Problems Abdominal pain (Acute) Anemia associated with acute blood loss (Acute) Nausea and vomiting (Acute) 1. Hypovolemic shock due acute GI bleed; she received IV fluids and packed RBCs and she is now hemodynamically stable. 2. acute blood loss anemia; she received PRBCs and she is stable, will give her IV iron. 3. Anastomotic ulcers; continue on Protonix 4 Abdominal pain due to # 3, this has now resolved. 4. Chronic kidney disease; we will avoid potential nephrotoxic medications, dose medications based on her current GFR. 5. diffuse wall thickening of stomach and small bowel; we will continue on IV Flagyl and Levaquin for possible infectious process. 6. Hypothyroidism; she is on Synthroid. 7. coagulopathy with an INR of 1.3, unclear etiology, her liver enzymes are normal and she is not on an anticoagulant from home. 8. Deconditioning ; PT OT as tolerated.
[2016-12-11 15:23] LABS: Pathologist Review Reviewed
[2016-12-11 15:39] LABS: Hematocrit 17.8 % (37-47)
--- NOTE | 2016-12-11 17:29 | NURSING ---
1600- HGB noted to 6. Called lab for re-draw d/t pt being on MED SURG 306. Dr Garcia on unit & aware, order for repeat H&H. Called kaya Velasco RN & also spoke w/JOCE Pope, regarding redraw of HGB.
--- NOTE | 2016-12-11 17:31 | NURSING ---
1700-called Lab d/t HH still not drawn. Stated that Level [facility] Inspector And Tester is out drawing blood and has 306 on her list.
[2016-12-11 17:43] LABS: Hematocrit 28.5 % (37-47); Hemoglobin 9.1 g/dl (12.0-15.0)
[2016-12-11] MEDS: 0.9% NaCl Peripheral Flush Adult/Peds IV (22:17)
[2016-12-11] MEDS: Pantoprazole Sodium 40 MG Tablet PO (22:17)
[2016-12-12 02:00] VITALS: BP 94/55; PULSE 72; RESP 18; TEMP 36.8; O2SAT 97
[2016-12-12] MEDS: levoFLOXacin 250 MG Tablet PO (06:00)
[2016-12-12] MEDS: Levothyroxine 50 MCG Tablet PO (06:00)
[2016-12-12] MEDS: metroNIDAZOLE 500 MG Tablet PO (06:00)
[2016-12-12 06:02] LABS: Absolute Lymphocyte Count 1.02 X10^3/ul (0.83-4.51); Absolute Neutrophil Count 4.4 X10^3/uL (2.0-7.7); Basophil# 0.01 X10^3/uL; Basophil% 0.2 % (0-1); Eosinophil# 0.11 X10^3/uL; Eosinophils% 1.9 % (0-5); Hematocrit 22.1 % (37-47); Lymphocyte # 1.02 X10^3/ul (4.0); Lymphocyte % 17.3 % (19-41); Mean Corp Hgb Conc 31.7 g/gl (32-36); Mean Corpuscular Hgb 30.6 pg (27.0-32.0); Mean Corpuscular Volume 96.5 fL (81-99); Mean Platelet Vol. 11.3 fl (6.2-12.0); Monocyte# 0.36 X10^3/uL; Monocyte% 6.1 % (0-10); Neutrophil # 4.35 X10^3/uL (2.7-7.7); Platelet Count 140 K/mm3 (150-450); RBC Distribution Width CV 15.7 % (11.6-14.6); RBC Distribution Width SD 52.3 fl (35.1-43.9); Red Blood Count 2.29 M/mm3 (4.2-5.4); White Blood Count 5.9 K/mm3 (4.4-11.0)
[2016-12-12 06:03] LABS: POSITIVE COUNT NO; POSITIVE DIFFERENTIAL NO; POSITIVE MORPHOLOGY NO
[2016-12-12 07:22] VITALS: O2SAT 96
[2016-12-12 08:00] VITALS: BP 95/56; PULSE 67; RESP 16; TEMP 36.9; O2SAT 98
[2016-12-12 08:41] LABS: Hematocrit 24.2 % (37-47); Hemoglobin 7.7 g/dl (12.0-15.0)
[2016-12-12] MEDS: Pantoprazole Sodium 40 MG Tablet PO (10:05)
--- NOTE | 2016-12-12 10:29 | PCM.DC ---
- Discharge Diagnoses Current Active Problems: Current Active and Chronic Problems Abdominal pain (Acute) Anemia associated with acute blood loss (Acute) Nausea and vomiting (Acute) You will use the following diet at home:: No restrictions Your food should be the consistency of: Regular Your liquids should be the consistency of: Regular/Thin Discharge Activity: Return to Normal Activity Allergies/Adverse Reactions: Allergies fentanyl Allergy (Verified 12/10/16 19:42) Other Penicillins [PCN] Allergy (Verified 11/21/16 15:09) Angioedema PENTANYLBUPIVACAINE Allergy (Uncoded 11/21/16 15:09) Other Medications to take at Discharge Sucralfate [Carafate] 1 gm PO TID 11/21/16 Ferrous Sulfate [Iron] 325 mg PO BID #60 tablet 11/25/16 Levothyroxine [Synthroid] 50 mcg PO DAILY@0600 #30 tablet 11/25/16 Sodium Bicarbonate 650 mg PO BID #60 tablet 11/25/16 Ascorbic Acid [Vitamin C] 500 mg PO BID 12/09/16 Cyanocobalamin (Vitamin B-12) [Vitamin B-12] 1,500 mcg PO DAILY 12/09/16 Pantoprazole Sodium [Protonix] 40 mg PO BID #60 tablet 12/12/16 The following prescriptions were given: Pantoprazole Sodium [Protonix] 40 mg PO BID #60 tablet Primary Care Physician: Tu Pearce MD [Primary Care Provider] - Proposed Discharge Date: 12/12/16
--- NOTE | 2016-12-12 10:31 | PCM.DC.SUM ---
Discharge Date and Diagnosis - Problem List Patient Problems: Active and Suspected Problems Abdominal pain (Acute) Anemia associated with acute blood loss (Acute) Nausea and vomiting (Acute) Date of Admission: 12/09/16 Date of Discharge: 12/12/16 - Primary Discharge Diagnosis Active and Suspected Problems Abdominal pain (Acute) Anemia associated with acute blood loss (Acute) Nausea and vomiting (Acute) - Secondary Discharge Diagnosis Chronic Problems CKD (chronic kidney disease) (Chronic) Hypothyroid (Chronic) Vitamin D deficiency (Chronic) Hospital Course and Treatment Operations: None Procedures: EGD Summary of Care Provided: 1. Hypovolemic shock due acute GI bleed; she received IV fluids and packed RBCs and she is now hemodynamically stable. 2. acute blood loss anemia; she received PRBCs and her hgb is stable, at 7.7, she was given IV iron, continue p.o. iron sulfate at 325 mg p.o. twice daily at home. 3. Anastomotic ulcers; continue on Protonix 40mg bid, until follows up with her gastroenterology next week. 4 Abdominal pain due to # 3, this has now resolved. 4. Chronic kidney disease;she will avoid potential nephrotoxic medications, dose medications based on her current GFR. 5. diffuse wall thickening of stomach and small bowel; she was given IV Flagyl and Levaquin for possible infectious process, we are not sending her out on oral antibiotics as there is no evidence of infection. 6. Hypothyroidism; she is on Synthroid will be continued. This is a 76 year old female patient with history of surgical repair of abdominal perforation that occurred during and endoscopy in 2002. She presents to the ED just over a week from discharge for similar complaint. She reports abdominal pain with nausea, vomiting. CT scan of the abdomen and pelvis done in the emergency room thickening of the junction between the distal stomach and small bowel which may represent an infectious or an inflammatory process. Whilst on the medical floor she was noted to be hypotensive with systolic blood pressure in the 80s she was also noted to be anemic with hemoglobin of 5.3, she was immediately transferred to the ICU and given packed RBCs IV Protonix , general surgery took patient down for endoscopy and she underwent EGD showing anastomotic ulcers , these were nonbleeding, the patient was monitored in the ICU overnight and then transferred back to the regular floor. She was started on IV iron infusions and hemoglobin was monitored and remained stable , hgb at discharge this is 7.7 she remains clinically stable denies any abdominal pain shortness of breath chest pain or dizziness. The exam at the time of discharge; vital signs were stable. He was alert and oriented to time place and person. He did not appear to be any form of distress. S1 and S2 heard no murmur or gallop Lung exam was clear to auscultation with no adventitious sounds. Abdomen was soft nontender with normal bowel sounds. extremity exam did not reveal any edema, palpable pulses bilaterally. Neurologic exam was grossly intact. Discharge Diet: No Restrictions Discharge Activity: Return to Normal Activity Home Medications: Medications to take at Discharge Sucralfate [Carafate] 1 gm PO TID 11/21/16 Ferrous Sulfate [Iron] 325 mg PO BID #60 tablet 11/25/16 Levothyroxine [Synthroid] 50 mcg PO DAILY@0600 #30 tablet 11/25/16 Sodium Bicarbonate 650 mg PO BID #60 tablet 11/25/16 Ascorbic Acid [Vitamin C] 500 mg PO BID 12/09/16 Cyanocobalamin (Vitamin B-12) [Vitamin B-12] 1,500 mcg PO DAILY 12/09/16 Pantoprazole Sodium [Protonix] 40 mg PO BID #60 tablet 12/12/16 Following Prescrptions Were Given to Patient: Pantoprazole Sodium [Protonix] 40 mg PO BID #60 tablet Primary Care Physician: Tu Pearce MD [Primary Care Provider] - Disposition: Home Patient Condition:: Good Meaningful Use Info Meaningful Use Diagnoses (Choose all that apply): None applicable
[2016-12-12 13:01] VITALS: BP 92/60; PULSE 76; RESP 16; TEMP 36.2; O2SAT 99
== END 2016-12-12 14:06 | disposition home or self-care (01) | DRG 377 ==
PROVIDERS: Family Medicine; Internal Medicine Critical Care Medicine; Admitting Provider Family Medicine; Emergency Provider Emergency Medicine; Family Provider Family Medicine; PCP Family Medicine; Visit Provider Internal Medicine
DX: K28.4 Chronic or unspecified gastrojejunal ulcer with hemorrhage (principal); R57.1 Hypovolemic shock; D62 Acute posthemorrhagic anemia; E03.9 Hypothyroidism, unspecified; E86.0 Dehydration; E55.9 Vitamin D deficiency, unspecified; Z90.49 Acquired absence of other specified parts of digestive tract; Z90.710 Acquired absence of both cervix and uterus; Z98.84 Bariatric surgery status
CPT/HCPCS: 36415; 71010; 74176; 80048; 80053; 80076; 81001; 83605; 83690; 84439; 84443; 84484; 85014; 85018; 85025; 85027; 85610; 85652; 85730; 86850; 86900; 86920; 86922; 87040; 87077; 87086; 87088; 87186; 87641; 93005; 97802; 97803; 99285; J1756; J7030; J7040; P9016; A4216; J2405; J3490